=== PATIENT | male | born 1975 | race Caucasian/White ===

== ENCOUNTER 2017-06-13 15:22 | Emergency (ER) | payer MEDICAID ==
[~2017-06-13] VITALS: Ht 157.5 cm; Wt 80.1 kg
[~2017-06-13 15:22] MED LIST: ASPI-621 PO; ATOR10TA9 PO; CARV12.543 PO; CARV3.1212 PO; CARV6.252 PO; FURO-92 PO; FURO40TA6 PO; LANS30CA PO; LISI2.5T PO; METF500T27 PO; POTA20TA89 PO; POTA99TA2 PO; SPIR25TA PO
[2017-06-13] MEDS ORDERED: ONDANSETRON 2MG/ML, 2ML IM ONE (15:30)
[2017-06-13] MEDS ORDERED: SODIUM CHLORIDE FLUSH 10ML SYR IVF ONE (15:30)
[2017-06-13] MEDS ORDERED: SODIUM CHLORIDE 0.9% 1,000ML IVBOLUS ONE (15:30)
[2017-06-13 15:58] LABS: PH, VENOUS 7.409 pH (7.320-7.420)
[2017-06-13 16:01] LABS: HEMATOCRIT 44.2 % (39.2-51.8); HEMOGLOBIN 15.4 g/dL (13.7-18.0); WHITE BLOOD COUNT 5.9 x10^3/uL (3.4-10)
[2017-06-13 16:11] LABS: BLOOD UREA NITROGEN 12 mg/dL (7-18)
[2017-06-13 16:17] LABS: ASPARTATE AMINO TRANSFERASE 22 U/L (15-37)
[2017-06-13 18:00] VITALS: BP 106/78
== END 2017-06-13 18:03 | disposition home or self-care (01) ==
LOC: ED 17:28
DX: E11.65 Type 2 diabetes mellitus with hyperglycemia (principal); I10 Essential (primary) hypertension; E78.5 Hyperlipidemia, unspecified; Z79.84 Long term (current) use of oral hypoglycemic drugs
CPT/HCPCS: 36415; 71020; 80053; 82010; 82803; 82962; 85025; 96360; 99285; J7030

== ENCOUNTER 2017-10-23 15:34 | Emergency (ER) | payer SELFPAY ==
[~2017-10-23] VITALS: Ht 154.9 cm; Wt 78.0 kg
[~2017-10-23 15:34] MED LIST changes: +INSU100I13 IM
[2017-10-23 16:17] LABS: BASOPHILS # (AUTO) 0.04 x10^3/uL (0-0.1); BASOPHILS % (AUTO) 1 % (0-1); EOSINOPHILS # (AUTO) 0.12 x10^3/uL (0-0.4); EOSINOPHILS % (AUTO) 2 % (1-7); LYMPHOCYTES % (AUTO) 24 % (22-44); MD NO; MEAN CORPUSCULAR HEMOGLOBIN 31.3 pg (27.5-34.5); MEAN CORPUSCULAR HGB CONC 33.3 g/dL (33.2-36.2); MEAN PLATELET VOLUME 8.7 fL (7.4-10.4); MONOCYTES # (AUTO) 0.77 x10^3/uL (0.2-0.8); MONOCYTES % (AUTO) 11 % (2-9); NEUTROPHILS % (AUTO) 64 % (42-75); PLATELET COUNT 182 x10^3/uL (130-400); RED CELL DISTRIBUTION WIDTH 12.5 % (9.4-14.8)
[2017-10-23 16:22] LABS: ALANINE AMINOTRANSFERASE 373 U/L (12-78); ALBUMIN 3.5 g/dL (3.4-5.0); ANION GAP 10 mmol/L (5-15); CALCIUM 8.2 mg/dL (8.5-10.1); CHLORIDE 103 mmol/L (98-107); CREATININE 0.82 mg/dL (0.7-1.3)
[2017-10-23 16:27] LABS: ALKALINE PHOSPHATASE 170 U/L (45-117); BILIRUBIN,TOTAL 0.8 mg/dL (0.2-1.0); TOTAL PROTEIN 6.6 g/dL (6.4-8.2); TROPONIN I < 0.015 ng/mL (0.000-0.045)
[2017-10-23] MEDS ORDERED: POTASSIUM PO (17:08)
[2017-10-23] MEDS ORDERED: CARV6.252 PO (17:08)
[2017-10-23] MEDS ORDERED: FURO20TA3 PO (17:08)
[2017-10-23 19:04] VITALS: BP 108/75
== END 2017-10-23 19:07 | disposition home or self-care (01) ==
LOC: ED 16:25
DX: I50.22 Chronic systolic (congestive) heart failure (principal); R10.13 Epigastric pain; E11.9 Type 2 diabetes mellitus without complications; E78.5 Hyperlipidemia, unspecified; F41.9 Anxiety disorder, unspecified; K21.9 Gastro-esophageal reflux disease without esophagitis; Z79.84 Long term (current) use of oral hypoglycemic drugs; Z95.0 Presence of cardiac pacemaker; Z79.899 Other long term (current) drug therapy
CPT/HCPCS: 36415; 74022; 80053; 83690; 83880; 84484; 85025; 93005; 99285

== ENCOUNTER 2017-10-30 13:16 | Inpatient (IN) | payer MEDICAID, OTHER ==
[~2017-10-30] VITALS: Ht 154.9 cm; Wt 77.6 kg
[~2017-10-30 13:16] MED LIST changes: +FURO20TA3 PO; +POTASSIUM PO
[2017-10-30] MEDS ORDERED: SODIUM CHLORIDE FLUSH 10ML SYR IVF ONE (14:00)
[2017-10-30] MEDS ORDERED: FUROSEMIDE 40 MG/4 ML IVPush ONE (14:00)
[2017-10-30] MEDS ORDERED: FUROSEMIDE 40 MG/4 ML ONE (14:17)
[2017-10-30] MEDS ORDERED: ATOR10TA PO (14:45)
[2017-10-30 14:58] LABS: BASOPHILS # (AUTO) 0.03 x10^3/uL (0-0.1); BASOPHILS % (AUTO) 1 % (0-1); EOSINOPHILS # (AUTO) 0.11 x10^3/uL (0-0.4); EOSINOPHILS % (AUTO) 2 % (1-7); LYMPHOCYTES # (AUTO) 1.54 x10^3/uL (1-3.4); LYMPHOCYTES % (AUTO) 26 % (22-44); MD NO; MEAN CORPUSCULAR HEMOGLOBIN 30.9 pg (27.5-34.5); MEAN CORPUSCULAR HGB CONC 32.9 g/dL (33.2-36.2); MEAN CORPUSCULAR VOLUME 93.9 fL (81-97); MEAN PLATELET VOLUME 8.7 fL (7.4-10.4); MONOCYTES # (AUTO) 0.57 x10^3/uL (0.2-0.8); MONOCYTES % (AUTO) 9 % (2-9); NEUTROPHILS # (AUTO) 3.78 x10^3/uL (1.8-6.8); NEUTROPHILS % (AUTO) 63 % (42-75); PLATELET COUNT 210 x10^3/uL (130-400); RED BLOOD COUNT 4.61 x10^6/uL (4.38-5.82); RED CELL DISTRIBUTION WIDTH 13.2 % (9.4-14.8)
[2017-10-30 15:09] LABS: ALANINE AMINOTRANSFERASE 249 U/L (12-78); ALBUMIN 3.4 g/dL (3.4-5.0); ANION GAP 7 mmol/L (5-15); CALCIUM 8.2 mg/dL (8.5-10.1); CHLORIDE 105 mmol/L (98-107)
[2017-10-30 15:12] LABS: ALKALINE PHOSPHATASE 165 U/L (45-117); BILIRUBIN,TOTAL 0.4 mg/dL (0.2-1.0); TOTAL PROTEIN 6.4 g/dL (6.4-8.2); TROPONIN I 0.017 ng/mL (0.000-0.045)
[2017-10-30] MEDS ORDERED: LABETALOL 5MG/ML, 20ML IVPush PRN (17:00)
[2017-10-30] MEDS ORDERED: ONDANSETRON ODT 4 MG PO PRN (17:00)
[2017-10-30] MEDS ORDERED: GUAIFENESIN/DM 200-20MG, 10ML UDC PO PRN (17:00)
[2017-10-30] MEDS ORDERED: POLYETHYLENE GLYCOL 17 GM PACKET PO PRN (17:00)
[2017-10-30] MEDS ORDERED: ONDANSETRON 2MG/ML, 2ML IVPush PRN (17:00)
[2017-10-30 17:16] LABS: FREE T4 (FREE THYROXINE) 0.84 ng/dL (0.76-1.46)
[2017-10-30 18:16] VITALS: BP 85/64
[2017-10-30] MEDS: FUROSEMIDE 40 MG/4 ML IV SCH (19:53)
[2017-10-30 20:21] VITALS: BP 93/69
[2017-10-30] MEDS ORDERED: CARVEDILOL 6.25 MG TABLET PO SCH (21:00)
[2017-10-30] MEDS ORDERED: ATORVASTATIN 10 MG TABLET PO SCH (21:00)
[2017-10-30] MEDS: INSULIN LISPRO 100 UNITS/ML, PEN SQ-INSULIN SCH (21:41)
[2017-10-30] MEDS: INSULIN GLARGINE 100 UNITS/ML, PEN SQ-INSULIN SCH (21:44)
[2017-10-30] MEDS: ENOXAPARIN 40 MG/0.4 ML SQ SCH (21:45)
[2017-10-31] MEDS ORDERED: ASPIRIN 81 MG TABLET EC PO ONE (00:30)
[2017-10-31 01:53] VITALS: BP 88/61
[2017-10-31 05:47] LABS: BASOPHILS # (AUTO) 0.04 x10^3/uL (0-0.1); BASOPHILS % (AUTO) 1 % (0-1); EOSINOPHILS # (AUTO) 0.16 x10^3/uL (0-0.4); EOSINOPHILS % (AUTO) 3 % (1-7); LYMPHOCYTES # (AUTO) 1.81 x10^3/uL (1-3.4); LYMPHOCYTES % (AUTO) 33 % (22-44); MD NO; MEAN CORPUSCULAR HEMOGLOBIN 31.3 pg (27.5-34.5); MEAN CORPUSCULAR HGB CONC 33.2 g/dL (33.2-36.2); MEAN CORPUSCULAR VOLUME 94.3 fL (81-97); MEAN PLATELET VOLUME 8.6 fL (7.4-10.4); MONOCYTES # (AUTO) 0.45 x10^3/uL (0.2-0.8); MONOCYTES % (AUTO) 8 % (2-9); NEUTROPHILS # (AUTO) 2.96 x10^3/uL (1.8-6.8); NEUTROPHILS % (AUTO) 55 % (42-75); PLATELET COUNT 186 x10^3/uL (130-400); RED BLOOD COUNT 4.41 x10^6/uL (4.38-5.82); RED CELL DISTRIBUTION WIDTH 12.9 % (9.4-14.8)
[2017-10-31 05:52] LABS: ALBUMIN 3.2 g/dL (3.4-5.0); ANION GAP 9 mmol/L (5-15); CALCIUM 8.3 mg/dL (8.5-10.1); CHLORIDE 104 mmol/L (98-107)
[2017-10-31 06:07] LABS: ALANINE AMINOTRANSFERASE 214 U/L (12-78); ALKALINE PHOSPHATASE 145 U/L (45-117); BILIRUBIN,TOTAL 0.4 mg/dL (0.2-1.0); CHOL/HDL RATIO 6.3; CHOLESTEROL, TOTAL 145 mg/dL (140-239); CREATININE 0.83 mg/dL (0.7-1.3); HDL CHOL % 16 % (26-37); HDL CHOLESTEROL (DIRECT) 23 mg/dL (40-60); LDL CHOLESTEROL,CALCULATED 102 mg/dL (54-169); LDL/HDL RATIO 4.4 (0.5-3.0); TOTAL PROTEIN 6.1 g/dL (6.4-8.2); TRIGLYCERIDES 99 mg/dL (50-200); VLDL CHOLESTEROL 20 mg/dL (0-25)
[2017-10-31 07:12] VITALS: BP 96/69
[2017-10-31] MEDS: INSULIN LISPRO 100 UNITS/ML, PEN SQ-INSULIN SCH ×4 (07:50→20:54)
[2017-10-31 08:58] VITALS: BP 85/59
[2017-10-31] MEDS ORDERED: CARVEDILOL 6.25 MG TABLET PO SCH (09:00)
[2017-10-31] MEDS: FUROSEMIDE 40 MG/4 ML IV SCH ×2 (09:00→20:53)
[2017-10-31] MEDS ORDERED: LISINOPRIL 5 MG TABLET PO SCH (09:00)
[2017-10-31] MEDS ORDERED: SPIRONOLACTONE 25 MG TABLET PO SCH (09:00)
[2017-10-31] MEDS: ASPIRIN 81 MG TABLET EC PO SCH (09:00)
[2017-10-31] MEDS: SENNA/DOCUSATE TABLET PO SCH (09:01)
[2017-10-31 10:15] VITALS: BP 122/82
[2017-10-31] MEDS: POTASSIUM CHLORIDE 20 MEQ TAB.ER.PRT PO SCH ×2 (10:15→17:30)
[2017-10-31] MEDS: LISINOPRIL 5 MG TABLET PO SCH (10:15)
[2017-10-31 13:22] VITALS: BP 98/76
[2017-10-31 19:46] VITALS: BP 106/75
[2017-10-31] MEDS: ENOXAPARIN 40 MG/0.4 ML SQ SCH (20:54)
[2017-10-31] MEDS: INSULIN GLARGINE 100 UNITS/ML, PEN SQ-INSULIN SCH (20:54)
[2017-10-31] MEDS: CARVEDILOL 3.125 MG TABLET PO SCH (20:55)
[2017-10-31] MEDS: ATORVASTATIN 10 MG TABLET PO SCH (20:55)
[2017-11-01 02:34] VITALS: BP 89/70
[2017-11-01 05:39] LABS: BASOPHILS # (AUTO) 0.04 x10^3/uL (0-0.1); BASOPHILS % (AUTO) 1 % (0-1); EOSINOPHILS % (AUTO) 4 % (1-7); LYMPHOCYTES # (AUTO) 1.85 x10^3/uL (1-3.4); LYMPHOCYTES % (AUTO) 34 % (22-44); MD NO; MEAN CORPUSCULAR HEMOGLOBIN 31.2 pg (27.5-34.5); MEAN CORPUSCULAR HGB CONC 33.1 g/dL (33.2-36.2); MEAN CORPUSCULAR VOLUME 94.3 fL (81-97); MEAN PLATELET VOLUME 8.3 fL (7.4-10.4); MONOCYTES # (AUTO) 0.53 x10^3/uL (0.2-0.8); MONOCYTES % (AUTO) 10 % (2-9); NEUTROPHILS # (AUTO) 2.81 x10^3/uL (1.8-6.8); NEUTROPHILS % (AUTO) 52 % (42-75); PLATELET COUNT 190 x10^3/uL (130-400); RED BLOOD COUNT 4.37 x10^6/uL (4.38-5.82)
[2017-11-01 05:48] LABS: CHLORIDE 105 mmol/L (98-107)
[2017-11-01 05:57] LABS: ALANINE AMINOTRANSFERASE 178 U/L (12-78); ALBUMIN 3.2 g/dL (3.4-5.0); ALKALINE PHOSPHATASE 129 U/L (45-117); ANION GAP 7 mmol/L (5-15); BILIRUBIN,TOTAL 0.4 mg/dL (0.2-1.0); CALCIUM 8.6 mg/dL (8.5-10.1); CREATININE 0.86 mg/dL (0.7-1.3); TOTAL PROTEIN 6.3 g/dL (6.4-8.2)
[2017-11-01 06:33] VITALS: BP 95/70
[2017-11-01] MEDS: INSULIN LISPRO 100 UNITS/ML, PEN SQ-INSULIN SCH ×4 (07:00→20:35)
[2017-11-01] MEDS: ASPIRIN 81 MG TABLET EC PO SCH (08:24)
[2017-11-01] MEDS: CARVEDILOL 3.125 MG TABLET PO SCH ×2 (08:25→20:32)
[2017-11-01] MEDS: POTASSIUM CHLORIDE 20 MEQ TAB.ER.PRT PO SCH ×2 (08:26→20:31)
[2017-11-01] MEDS: LISINOPRIL 5 MG TABLET PO SCH (08:26)
[2017-11-01] MEDS: SPIRONOLACTONE 25 MG TABLET PO SCH (08:26)
[2017-11-01] MEDS: FUROSEMIDE 40 MG/4 ML IV SCH ×2 (08:26→20:32)
[2017-11-01] MEDS: SENNA/DOCUSATE TABLET PO SCH (08:27)
[2017-11-01 11:17] VITALS: BP 80/60
[2017-11-01 14:17] VITALS: BP 89/63
[2017-11-01 19:37] VITALS: BP 90/67
[2017-11-01 20:29] VITALS: BP 92/67
[2017-11-01] MEDS: ATORVASTATIN 10 MG TABLET PO SCH (20:31)
[2017-11-01] MEDS: INSULIN GLARGINE 100 UNITS/ML, PEN SQ-INSULIN SCH (20:33)
[2017-11-01] MEDS: ENOXAPARIN 40 MG/0.4 ML SQ SCH (20:33)
[2017-11-02 00:45] VITALS: BP 89/59
[2017-11-02 05:19] LABS: ALBUMIN 3.2 g/dL (3.4-5.0); ANION GAP 10 mmol/L (5-15); CALCIUM 7.9 mg/dL (8.5-10.1); CHLORIDE 106 mmol/L (98-107)
[2017-11-02 05:24] LABS: ALANINE AMINOTRANSFERASE 149 U/L (12-78); ALKALINE PHOSPHATASE 140 U/L (45-117); BILIRUBIN,TOTAL 0.7 mg/dL (0.2-1.0); CREATININE 0.88 mg/dL (0.7-1.3); TOTAL PROTEIN 6.3 g/dL (6.4-8.2)
[2017-11-02] MEDS: INSULIN LISPRO 100 UNITS/ML, PEN SQ-INSULIN SCH ×4 (07:00→20:25)
[2017-11-02 07:34] VITALS: BP 101/72
[2017-11-02] MEDS: FUROSEMIDE 40 MG/4 ML IV SCH (08:51)
[2017-11-02] MEDS: LISINOPRIL 5 MG TABLET PO SCH (08:51)
[2017-11-02] MEDS: CARVEDILOL 3.125 MG TABLET PO SCH ×2 (08:52→20:48)
[2017-11-02] MEDS: ASPIRIN 81 MG TABLET EC PO SCH (08:52)
[2017-11-02] MEDS: POTASSIUM CHLORIDE 20 MEQ TAB.ER.PRT PO SCH ×2 (08:52→20:48)
[2017-11-02] MEDS: SENNA/DOCUSATE TABLET PO SCH (08:56)
[2017-11-02] MEDS: SPIRONOLACTONE 25 MG TABLET PO SCH (09:04)
[2017-11-02 13:09] VITALS: BP 93/65
[2017-11-02 20:44] VITALS: BP 93/64
[2017-11-02] MEDS: ENOXAPARIN 40 MG/0.4 ML SQ SCH (20:48)
[2017-11-02] MEDS: ATORVASTATIN 10 MG TABLET PO SCH (20:48)
[2017-11-02] MEDS: INSULIN GLARGINE 100 UNITS/ML, PEN SQ-INSULIN SCH (20:49)
[2017-11-03 04:30] VITALS: BP 99/70
[2017-11-03 05:52] LABS: BASOPHILS # (AUTO) 0.05 x10^3/uL (0-0.1); BASOPHILS % (AUTO) 1 % (0-1); EOSINOPHILS # (AUTO) 0.24 x10^3/uL (0-0.4); EOSINOPHILS % (AUTO) 4 % (1-7); LYMPHOCYTES # (AUTO) 2.07 x10^3/uL (1-3.4); LYMPHOCYTES % (AUTO) 33 % (22-44); MD NO; MEAN CORPUSCULAR HEMOGLOBIN 31.3 pg (27.5-34.5); MEAN CORPUSCULAR HGB CONC 33.4 g/dL (33.2-36.2); MEAN CORPUSCULAR VOLUME 93.8 fL (81-97); MEAN PLATELET VOLUME 8.5 fL (7.4-10.4); MONOCYTES # (AUTO) 0.53 x10^3/uL (0.2-0.8); MONOCYTES % (AUTO) 9 % (2-9); NEUTROPHILS # (AUTO) 3.33 x10^3/uL (1.8-6.8); NEUTROPHILS % (AUTO) 54 % (42-75); PLATELET COUNT 180 x10^3/uL (130-400); RED BLOOD COUNT 4.31 x10^6/uL (4.38-5.82); RED CELL DISTRIBUTION WIDTH 12.8 % (9.4-14.8)
[2017-11-03 06:06] LABS: CHLORIDE 107 mmol/L (98-107)
[2017-11-03 06:22] LABS: ALANINE AMINOTRANSFERASE 121 U/L (12-78); ALBUMIN 3.3 g/dL (3.4-5.0); ALKALINE PHOSPHATASE 130 U/L (45-117); ANION GAP 9 mmol/L (5-15); BILIRUBIN,TOTAL 0.7 mg/dL (0.2-1.0); CALCIUM 8.1 mg/dL (8.5-10.1); CREATININE 0.85 mg/dL (0.7-1.3); TOTAL PROTEIN 6.2 g/dL (6.4-8.2)
[2017-11-03] MEDS: INSULIN LISPRO 100 UNITS/ML, PEN SQ-INSULIN SCH ×4 (07:00→22:24)
[2017-11-03 07:27] VITALS: BP 92/69
[2017-11-03] MEDS ORDERED: FUROSEMIDE 40 MG TABLET PO SCH (09:00)
[2017-11-03] MEDS: SENNA/DOCUSATE TABLET PO SCH (09:00)
[2017-11-03] MEDS: LISINOPRIL 5 MG TABLET PO SCH (09:42)
[2017-11-03] MEDS: SPIRONOLACTONE 25 MG TABLET PO SCH (09:43)
[2017-11-03] MEDS: POTASSIUM CHLORIDE 20 MEQ TAB.ER.PRT PO SCH ×2 (09:44→18:34)
[2017-11-03] MEDS: ASPIRIN 81 MG TABLET EC PO SCH (09:45)
[2017-11-03] MEDS: CARVEDILOL 3.125 MG TABLET PO SCH ×2 (09:45→22:23)
[2017-11-03 13:58] VITALS: BP 94/64
[2017-11-03] MEDS: FUROSEMIDE 40 MG TABLET PO SCH ×2 (18:34→20:20)
[2017-11-03 18:46] VITALS: BP 96/67
[2017-11-03] MEDS: ENOXAPARIN 40 MG/0.4 ML SQ SCH (22:22)
[2017-11-03] MEDS: ATORVASTATIN 10 MG TABLET PO SCH (22:23)
[2017-11-03] MEDS: INSULIN GLARGINE 100 UNITS/ML, PEN SQ-INSULIN SCH (22:25)
[2017-11-04 02:12] VITALS: BP 94/65
[2017-11-04 05:19] LABS: BASOPHILS # (AUTO) 0.04 x10^3/uL (0-0.1); BASOPHILS % (AUTO) 1 % (0-1); EOSINOPHILS # (AUTO) 0.19 x10^3/uL (0-0.4); EOSINOPHILS % (AUTO) 3 % (1-7); LYMPHOCYTES % (AUTO) 36 % (22-44); MD NO; MEAN CORPUSCULAR HEMOGLOBIN 31.3 pg (27.5-34.5); MEAN CORPUSCULAR HGB CONC 33.5 g/dL (33.2-36.2); MEAN CORPUSCULAR VOLUME 93.5 fL (81-97); MEAN PLATELET VOLUME 8.5 fL (7.4-10.4); MONOCYTES # (AUTO) 0.49 x10^3/uL (0.2-0.8); MONOCYTES % (AUTO) 8 % (2-9); NEUTROPHILS # (AUTO) 3.15 x10^3/uL (1.8-6.8); NEUTROPHILS % (AUTO) 52 % (42-75); PLATELET COUNT 181 x10^3/uL (130-400); RED BLOOD COUNT 4.43 x10^6/uL (4.38-5.82)
[2017-11-04 05:20] LABS: ALBUMIN 3.2 g/dL (3.4-5.0); ANION GAP 8 mmol/L (5-15); CALCIUM 8.3 mg/dL (8.5-10.1); CHLORIDE 106 mmol/L (98-107)
[2017-11-04 05:24] LABS: ALANINE AMINOTRANSFERASE 110 U/L (12-78); ALKALINE PHOSPHATASE 148 U/L (45-117); BILIRUBIN,TOTAL 0.3 mg/dL (0.2-1.0); CREATININE 0.74 mg/dL (0.7-1.3); TOTAL PROTEIN 6.4 g/dL (6.4-8.2)
[2017-11-04] MEDS: INSULIN LISPRO 100 UNITS/ML, PEN SQ-INSULIN SCH ×3 (07:00→16:00)
[2017-11-04 07:12] VITALS: BP 108/71
[2017-11-04] MEDS: SENNA/DOCUSATE TABLET PO SCH (08:39)
[2017-11-04] MEDS: POTASSIUM CHLORIDE 20 MEQ TAB.ER.PRT PO SCH (08:53)
[2017-11-04] MEDS: ASPIRIN 81 MG TABLET EC PO SCH (08:53)
[2017-11-04] MEDS: CARVEDILOL 3.125 MG TABLET PO SCH (08:53)
[2017-11-04] MEDS: SPIRONOLACTONE 25 MG TABLET PO SCH (08:53)
[2017-11-04] MEDS: FUROSEMIDE 40 MG TABLET PO SCH (08:53)
[2017-11-04] MEDS: LISINOPRIL 5 MG TABLET PO SCH (08:54)
[2017-11-04 13:59] VITALS: BP 96/72
[2017-11-04] MEDS ORDERED: SPIR25TA PO (15:54)
[2017-11-04] MEDS ORDERED: FURO40TA6 PO (15:54)
[2017-11-04] MEDS ORDERED: CARV3.1212 PO (15:54)
[2017-11-04] MEDS ORDERED: POTA20TA6 PO (15:54)
== END 2017-11-04 17:24 | disposition home or self-care (01) | DRG 291 ==
LOC: ED 14:16 → EDIP 16:31 → 5SO 18:13
PROVIDERS: ADMIT Internal Medicine; ATTEND Internal Medicine
DX: I11.0 Hypertensive heart disease with heart failure (principal); J96.01 Acute respiratory failure with hypoxia; I47.2 Ventricular tachycardia; E11.65 Type 2 diabetes mellitus with hyperglycemia; I50.43 Acute on chronic combined systolic (congestive) and diastolic (congestive) heart failure; I42.0 Dilated cardiomyopathy; I27.29 Other secondary pulmonary hypertension; E78.5 Hyperlipidemia, unspecified; F10.10 Alcohol abuse, uncomplicated; K21.9 Gastro-esophageal reflux disease without esophagitis; Z79.4 Long term (current) use of insulin; Z79.899 Other long term (current) drug therapy; Z83.3 Family history of diabetes mellitus; Z87.891 Personal history of nicotine dependence; Z91.19 Patient's noncompliance with other medical treatment and regimen; Z95.810 Presence of automatic (implantable) cardiac defibrillator
CPT/HCPCS: 36415; 71045; 71046; 80053; 80061; 82962; 83690; 83735; 83880; 84100; 84439; 84484; 85025; 93005; J1650; J1940; J1815

== ENCOUNTER → 2018-09-10 | Outpatient (CLI) | payer MEDICAID ==
[~2018-09-10] MED LIST changes: -ASPI-621 PO; +ASPI81TA45 PO; +ATOR10TA PO; +POTA20TA6 PO
== END | disposition home or self-care (01) ==
LOC: CFH 12:10
PROVIDERS: ATTEND Physician Assistant Medical
DX: I08.1 Rheumatic disorders of both mitral and tricuspid valves (principal); R60.0 Localized edema; I10 Essential (primary) hypertension; E78.5 Hyperlipidemia, unspecified; Z87.891 Personal history of nicotine dependence; Z72.89 Other problems related to lifestyle
CPT/HCPCS: 0439T; 93306

== ENCOUNTER 2018-09-14 17:59 | Inpatient (IN) | payer MEDICAID ==
[~2018-09-14] VITALS: Ht 152.4 cm; Wt 74.8 kg
--- NOTE | 2018-09-14 18:37 | NUR ---
Pt stated that he has swelling of his ABD, genitals, and lower legs. Pt reports SOB and that he takes water pills. Pt is alert, oriented, with NAD. Pt is connected to the monitor. Call light within reach.
--- NOTE | 2018-09-14 18:58 | NUR ---
REPORT GIVEN TO REANNA MARSH
[2018-09-14 18:59] LABS: BASOPHILS # (AUTO) 0.02 x10^3/uL (0-0.1); BASOPHILS % (AUTO) 0 % (0-1); EOSINOPHILS # (AUTO) 0.07 x10^3/uL (0-0.4); EOSINOPHILS % (AUTO) 1 % (1-7); LYMPHOCYTES # (AUTO) 1.03 x10^3/uL (1-3.4); LYMPHOCYTES % (AUTO) 22 % (22-44); MD NO; MEAN CORPUSCULAR HEMOGLOBIN 31.9 pg (27.5-34.5); MEAN CORPUSCULAR HGB CONC 33.7 g/dL (33.2-36.2); MEAN CORPUSCULAR VOLUME 94.5 fL (81-97); MEAN PLATELET VOLUME 9.7 fL (7.4-10.4); MONOCYTES % (AUTO) 11 % (2-9); NEUTROPHILS # (AUTO) 3.03 x10^3/uL (1.8-6.8); NEUTROPHILS % (AUTO) 65 % (42-75); PLATELET COUNT 157 x10^3/uL (130-400); RED BLOOD COUNT 4.64 x10^6/uL (4.38-5.82); RED CELL DISTRIBUTION WIDTH 12.8 % (9.4-14.8)
[2018-09-14 19:04] LABS: INTERNATIONAL NORMALIZED RATIO 1.24 (0.93-1.1)
[2018-09-14 19:06] LABS: MICROSCOPIC NOT IND
[2018-09-14] MEDS ORDERED: SACU1TAB PO (19:06)
[2018-09-14 19:07] LABS: ALANINE AMINOTRANSFERASE 52 U/L (12-78); ALBUMIN 3.6 g/dL (3.4-5.0); ANION GAP 10 mmol/L (5-15); CALCIUM 8.9 mg/dL (8.5-10.1); CHLORIDE 94 mmol/L (98-107); CREATININE 1.17 mg/dL (0.7-1.3)
[2018-09-14 19:11] LABS: CULTURE INDICATED? NO
[2018-09-14 19:11] LABS: ALKALINE PHOSPHATASE 244 U/L (45-117); BILIRUBIN,TOTAL 0.7 mg/dL (0.2-1.0); TOTAL PROTEIN 6.9 g/dL (6.4-8.2); TROPONIN I < 0.015 ng/mL (0.000-0.045)
[2018-09-14] MEDS ORDERED: INSULIN REGULAR 100 UNITS/ML, 3ML VIAL IVPush ONE (20:00)
[2018-09-14] MEDS ORDERED: FUROSEMIDE 40 MG/4 ML IV ONE (20:00)
[2018-09-14] MEDS ORDERED: FUROSEMIDE 20 MG/2 ML ONE (20:09)
[2018-09-14] MEDS ORDERED: INSULIN LISPRO 100 UNITS/ML, PEN ONE (20:10)
--- NOTE | 2018-09-14 20:31 | NUR ---
IV STARTED AND PT MEDICATED PER EMAR FOR BLOOD SUGAR 683. PT RESTING COMFORTABLY ON GURNEY WITH FAMILY AT BEDSIDE. VVS AND WILL CONT TO MONITOR.
[2018-09-14] MEDS ORDERED: TEMAZEPAM 15 MG CAPSULE PO PRN (22:00)
[2018-09-14] MEDS ORDERED: GABAPENTIN 300 MG CAPSULE PO PRN (22:00)
[2018-09-14] MEDS ORDERED: LIDODERM 5% PATCH TD PRN (22:00)
[2018-09-14] MEDS ORDERED: DOCUSATE 100 MG CAPSULE PO PRN (22:00)
[2018-09-14] MEDS ORDERED: hydrALAzine 20 MG/ML, 1ML IVPush PRN (22:00)
[2018-09-14] MEDS ORDERED: ACETAMINOPHEN 325 MG TABLET PO PRN (22:00)
[2018-09-14] MEDS ORDERED: ONDANSETRON 2MG/ML, 2ML IVPush PRN (22:00)
[2018-09-14 22:47] LABS: HEMOGLOBIN A1C 13.9 % (4.2-6.3)
[2018-09-14] MEDS: CARVEDILOL 3.125 MG TABLET PO SCH (23:00)
[2018-09-14] MEDS: ENOXAPARIN 40 MG/0.4 ML SQ SCH (23:01)
[2018-09-14] MEDS: POTASSIUM CHLORIDE 20 MEQ TAB.ER.PRT PO SCH (23:02)
[2018-09-14] MEDS: SACUBITRIL/VALSARTAN 24MG-26MG TAB PO SCH (23:02)
[2018-09-14] MEDS: ATORVASTATIN 10 MG TABLET PO SCH (23:02)
[2018-09-14 23:33] VITALS: BP 94/67
[2018-09-15] VITALS (7 sets, daily range): BP systolic 89–104; BP diastolic 51–71
[2018-09-15] MEDS: INSULIN REGULAR 100 UNITS/ML, 3ML VIAL SQ-INSULIN SCH ×5 (01:00→21:55)
[2018-09-15 05:23] LABS: BASOPHILS # (AUTO) 0.05 x10^3/uL (0-0.1); BASOPHILS % (AUTO) 1 % (0-1); EOSINOPHILS # (AUTO) 0.13 x10^3/uL (0-0.4); EOSINOPHILS % (AUTO) 2 % (1-7); LYMPHOCYTES % (AUTO) 41 % (22-44); MD NO; MEAN CORPUSCULAR HEMOGLOBIN 30.8 pg (27.5-34.5); MEAN CORPUSCULAR HGB CONC 32.6 g/dL (33.2-36.2); MEAN CORPUSCULAR VOLUME 94.6 fL (81-97); MEAN PLATELET VOLUME 9.1 fL (7.4-10.4); MONOCYTES # (AUTO) 0.57 x10^3/uL (0.2-0.8); MONOCYTES % (AUTO) 11 % (2-9); NEUTROPHILS # (AUTO) 2.41 x10^3/uL (1.8-6.8); NEUTROPHILS % (AUTO) 45 % (42-75); PLATELET COUNT 180 x10^3/uL (130-400); RED CELL DISTRIBUTION WIDTH 12.9 % (9.4-14.8)
[2018-09-15 05:35] LABS: ANION GAP 9 mmol/L (5-15); CALCIUM 8.7 mg/dL (8.5-10.1); CHLORIDE 104 mmol/L (98-107); CREATININE 1.07 mg/dL (0.7-1.3)
[2018-09-15] MEDS: POTASSIUM CHLORIDE 20 MEQ TAB.ER.PRT PO SCH ×2 (07:54→17:05)
[2018-09-15] MEDS: FUROSEMIDE 40 MG/4 ML IV SCH ×2 (07:54→17:06)
[2018-09-15] MEDS: ASPIRIN 81 MG TABLET EC PO SCH (07:55)
[2018-09-15] MEDS: SACUBITRIL/VALSARTAN 24MG-26MG TAB PO SCH ×2 (07:55→21:42)
[2018-09-15] MEDS: CARVEDILOL 3.125 MG TABLET PO SCH ×2 (09:00→21:00)
[2018-09-15] MEDS: INSULIN GLARGINE 100 UNITS/ML, PEN SQ-INSULIN SCH (12:50)
[2018-09-15] MEDS: metFORMIN 500 MG TABLET PO SCH (21:43)
[2018-09-15] MEDS: ATORVASTATIN 10 MG TABLET PO SCH (21:43)
[2018-09-15] MEDS: ENOXAPARIN 40 MG/0.4 ML SQ SCH (22:01)
[2018-09-16 00:18] VITALS: BP 102/71
[2018-09-16 05:17] LABS: ANION GAP 6 mmol/L (5-15); CALCIUM 8.5 mg/dL (8.5-10.1); CHLORIDE 104 mmol/L (98-107)
[2018-09-16 05:22] LABS: ALANINE AMINOTRANSFERASE 39 U/L (12-78); ALKALINE PHOSPHATASE 151 U/L (45-117); BILIRUBIN,TOTAL 0.7 mg/dL (0.2-1.0); CREATININE 0.87 mg/dL (0.7-1.3); TOTAL PROTEIN 6.2 g/dL (6.4-8.2)
[2018-09-16 08:10] VITALS: BP 92/69
[2018-09-16] MEDS: CARVEDILOL 3.125 MG TABLET PO SCH (08:33)
[2018-09-16] MEDS: POTASSIUM CHLORIDE 20 MEQ TAB.ER.PRT PO SCH (08:36)
[2018-09-16] MEDS: ASPIRIN 81 MG TABLET EC PO SCH (08:36)
[2018-09-16] MEDS: metFORMIN 500 MG TABLET PO SCH (08:36)
[2018-09-16] MEDS: SACUBITRIL/VALSARTAN 24MG-26MG TAB PO SCH (08:36)
[2018-09-16] MEDS: INSULIN GLARGINE 100 UNITS/ML, PEN SQ-INSULIN SCH (08:37)
[2018-09-16] MEDS: INSULIN REGULAR 100 UNITS/ML, 3ML VIAL SQ-INSULIN SCH (08:37)
[2018-09-16] MEDS ORDERED: FUROSEMIDE 40 MG TABLET PO SCH (11:00)
[2018-09-16] MEDS ORDERED: FUROSEMIDE 20 MG/2 ML IV SCH (17:00)
[2018-09-17] MEDS ORDERED: ROSU5TAB PO (15:18)
== END 2018-09-16 10:47 | disposition home or self-care (01) | DRG 637 ==
LOC: ED 18:55 → EDIP 21:10 → 5SO 22:44 → DCLOUNGE 09-16 10:36
PROVIDERS: ADMIT Internal Medicine; ATTEND Internal Medicine
DX: E11.65 Type 2 diabetes mellitus with hyperglycemia (principal); I50.43 Acute on chronic combined systolic (congestive) and diastolic (congestive) heart failure; E87.1 Hypo-osmolality and hyponatremia; I42.9 Cardiomyopathy, unspecified; I11.0 Hypertensive heart disease with heart failure; E11.69 Type 2 diabetes mellitus with other specified complication; E78.5 Hyperlipidemia, unspecified; F41.1 Generalized anxiety disorder; I27.20 Pulmonary hypertension, unspecified; K21.9 Gastro-esophageal reflux disease without esophagitis; Z83.3 Family history of diabetes mellitus; Z95.810 Presence of automatic (implantable) cardiac defibrillator; F10.20 Alcohol dependence, uncomplicated; Y90.9 Presence of alcohol in blood, level not specified; E66.9 Obesity, unspecified; Z68.32 Body mass index [BMI] 32.0-32.9, adult
CPT/HCPCS: 36415; 71045; 80048; 80053; 81003; 82962; 83036; 83880; 84484; 85025; 85610; 93005; 96374; 96375; 99285; G0378; J1650; J1815; J1940

== ENCOUNTER 2018-09-17 14:43 | Emergency (ER) | payer MEDICAID ==
[~2018-09-17] VITALS: Ht 152.4 cm; Wt 72.0 kg
[~2018-09-17 14:43] MED LIST changes: +SACU1TAB PO
--- NOTE | 2018-09-17 14:54 | NUR ---
PT ARRIVES FROM [facility] TODAY AFTER HAVING SOME BREAKFAST AND STARTED HAVING SOME PALPATATIONS AND THEN SOME ANXIETY. PT THEN DEVELOPED SOME SOB WITH CHEST PAIN ACROSS THE CHEST THAT RADIATES TO HIS BACK. PT REPROTS PAIN 01/02. PT DENIES ANY TRUAMA. PTS VSS ON ARRIVAL. PT CONNECTED TO ALL MONITORS AND CALL LIGHT IN REACH. AWAITING FURTHER ORDERS.
--- NOTE | 2018-09-17 15:16 | NUR ---
ERP TO BEDSIDE AT THIS TIME.
[2018-09-17] MEDS ORDERED: ROSU5TAB PO (15:18)
[2018-09-17 15:36] LABS: BASOPHILS # (AUTO) 0.03 x10^3/uL (0-0.1); BASOPHILS % (AUTO) 1 % (0-1); EOSINOPHILS # (AUTO) 0.08 x10^3/uL (0-0.4); EOSINOPHILS % (AUTO) 1 % (1-7); LYMPHOCYTES # (AUTO) 1.46 x10^3/uL (1-3.4); LYMPHOCYTES % (AUTO) 26 % (22-44); MD NO; MEAN CORPUSCULAR HEMOGLOBIN 30.4 pg (27.5-34.5); MEAN CORPUSCULAR HGB CONC 32.2 g/dL (33.2-36.2); MEAN CORPUSCULAR VOLUME 94.4 fL (81-97); MEAN PLATELET VOLUME 9.3 fL (7.4-10.4); MONOCYTES # (AUTO) 0.37 x10^3/uL (0.2-0.8); MONOCYTES % (AUTO) 6 % (2-9); NEUTROPHILS # (AUTO) 3.78 x10^3/uL (1.8-6.8); NEUTROPHILS % (AUTO) 66 % (42-75); PLATELET COUNT 200 x10^3/uL (130-400); RED BLOOD COUNT 4.97 x10^6/uL (4.38-5.82); RED CELL DISTRIBUTION WIDTH 12.8 % (9.4-14.8)
[2018-09-17 15:44] LABS: INTERNATIONAL NORMALIZED RATIO 1.28 (0.93-1.1); PROTHROMBIN TIME 13.4 Seconds (9.6-11.5)
[2018-09-17 15:45] LABS: ALANINE AMINOTRANSFERASE 51 U/L (12-78); ALBUMIN 3.2 g/dL (3.4-5.0); ANION GAP 9 mmol/L (5-15); CALCIUM 8.6 mg/dL (8.5-10.1); CHLORIDE 102 mmol/L (98-107); CREATININE 0.96 mg/dL (0.7-1.3)
[2018-09-17 15:49] LABS: ALKALINE PHOSPHATASE 159 U/L (45-117); BILIRUBIN,TOTAL 0.7 mg/dL (0.2-1.0); TOTAL PROTEIN 6.7 g/dL (6.4-8.2); TROPONIN I < 0.015 ng/mL (0.000-0.045)
--- NOTE | 2018-09-17 16:02 | NUR ---
ALL RESULTS BACK AT THIS TIME. CHART UP FOR RECHECK.
--- NOTE | 2018-09-17 16:57 | NUR ---
AWAITING DC PAPERS.
[2018-09-17 17:21] VITALS: BP 134/87
--- NOTE | 2018-09-17 17:21 | NUR ---
Patient/Caregiver given discharge instructions and they have confirmed that they understand the instructions. Patient ambulatory with steady gait.
== END 2018-09-17 17:23 | disposition home or self-care (01) ==
LOC: ED 15:49
DX: I50.9 Heart failure, unspecified (principal); K21.9 Gastro-esophageal reflux disease without esophagitis; E78.5 Hyperlipidemia, unspecified; I10 Essential (primary) hypertension; F41.1 Generalized anxiety disorder; Z79.899 Other long term (current) drug therapy; Z95.0 Presence of cardiac pacemaker
CPT/HCPCS: 36415; 71045; 80053; 83880; 84484; 85025; 85610; 85730; 93005; 99284

== ENCOUNTER 2019-10-09 08:36 | Emergency (ER) | payer SELFPAY ==
[~2019-10-09] VITALS: Ht 165.1 cm; Wt 82.0 kg
[~2019-10-09 08:36] MED LIST changes: +AMOX1TAB64 PO; +RIVA15TA PO; +ROSU5TAB PO
--- NOTE | 2019-10-09 08:57 | NUR ---
AGENCY SALES MANAGEMENT ASSISTANT: PT TO ROOM FROM [facility]
--- NOTE | 2019-10-09 09:12 | NUR ---
PATIENT BROUGHT BACK FROM TRIAGE WITH CHIEF COMPLAINT OF BILAT LOWER BACK PAIN SINCE YESTERDAY. PATIENT STATES SOME PAINFUL URINATION. DENIES, N/V, CP, SOB, RECENT TRAUMA.
--- NOTE | 2019-10-09 09:14 | NUR ---
PATIENT ALSO REPORT "INFLAMATION TO RIGHT LEG"
[2019-10-09] MEDS ORDERED: MORPHINE SULFATE 4 MG/ML, 1ML IVPush PRN (10:00)
[2019-10-09] MEDS ORDERED: METHOCARBAMOL 750 MG TABLET PO ONE (10:00)
[2019-10-09] MEDS ORDERED: SODIUM CHLORIDE FLUSH 10ML SYR IVF ONE (10:00)
[2019-10-09] MEDS ORDERED: METHOCARBAMOL 750 MG TABLET ONE (10:11)
[2019-10-09] MEDS ORDERED: MORPHINE SULFATE 4 MG/ML, 1ML ONE (10:12)
[2019-10-09 10:21] LABS: BASOPHILS # (AUTO) 0.08 x10^3/uL (0-0.1); BASOPHILS % (AUTO) 1 % (0-1); EOSINOPHILS # (AUTO) 0.21 x10^3/uL (0-0.4); EOSINOPHILS % (AUTO) 3 % (1-7); LYMPHOCYTES # (AUTO) 1.18 x10^3/uL (1-3.4); LYMPHOCYTES % (AUTO) 17 % (22-44); MD NO; MEAN CORPUSCULAR HGB CONC 32.5 g/dL (33.2-36.2); MEAN CORPUSCULAR VOLUME 86.2 fL (81-97); MEAN PLATELET VOLUME 8.9 fL (7.4-10.4); MONOCYTES # (AUTO) 0.61 x10^3/uL (0.2-0.8); MONOCYTES % (AUTO) 9 % (2-9); NEUTROPHILS # (AUTO) 4.81 x10^3/uL (1.8-6.8); NEUTROPHILS % (AUTO) 70 % (42-75); PLATELET COUNT 174 x10^3/uL (130-400); RED BLOOD COUNT 4.91 x10^6/uL (4.38-5.82); RED CELL DISTRIBUTION WIDTH 17.1 % (9.4-14.8)
[2019-10-09 10:29] LABS: ALANINE AMINOTRANSFERASE 13 U/L (12-78); ALBUMIN 3.6 g/dL (3.4-5.0); ANION GAP 8 mmol/L (5-15); CALCIUM 8.3 mg/dL (8.5-10.1); CHLORIDE 102 mmol/L (98-107)
[2019-10-09 10:34] LABS: ALKALINE PHOSPHATASE 166 U/L (45-117); BILIRUBIN,TOTAL 0.7 mg/dL (0.2-1.0); TOTAL PROTEIN 7.3 g/dL (6.4-8.2)
[2019-10-09 10:41] LABS: MICROSCOPIC NOT IND
[2019-10-09 10:42] LABS: CULTURE INDICATED? NO
--- NOTE | 2019-10-09 10:49 | NUR ---
PT TO IMAGING
[2019-10-09 10:51] LABS: ACETONE, SERUM Negative (Negative)
--- NOTE | 2019-10-09 11:35 | NUR ---
PT RESTING IN BED, CALL LIGHT IN REACH.
[2019-10-09 11:36] VITALS: BP 97/67
--- NOTE | 2019-10-09 12:05 | NUR ---
DISCHARGE INSTRUCTIONS REVIEWED
--- NOTE | 2019-10-09 12:39 | NUR ---
DISCHARGE INSTRUCTIONS REVIEWED
== END 2019-10-09 12:41 | disposition home or self-care (01) ==
LOC: ED 12:20
DX: M46.1 Sacroiliitis, not elsewhere classified (principal); I11.0 Hypertensive heart disease with heart failure; I50.9 Heart failure, unspecified; E11.9 Type 2 diabetes mellitus without complications; K21.9 Gastro-esophageal reflux disease without esophagitis; Z87.891 Personal history of nicotine dependence
CPT/HCPCS: 36415; 72110; 80053; 81003; 82010; 83880; 85025; 93005; 99285

== ENCOUNTER 2020-03-07 17:16 | Inpatient (IN) | payer MEDICAID, OTHER ==
[~2020-03-07] VITALS: Ht 162.6 cm; Wt 72.5 kg
--- NOTE | 2020-03-07 17:20 | NUR ---
PT STATES PALPITATONS AND CHEST TIGHTNESS STARTED SOON BEFORE 911 WAS CALLED. PT PALE AND ANXIOUS, HR 120 SINUS ON MONITOR.
[2020-03-07] MEDS ORDERED: LORazepam 2 MG/ML, 1ML IVPush ONE (17:30)
[2020-03-07] MEDS ORDERED: CARVEDILOL PO (17:30)
[2020-03-07] MEDS ORDERED: SODIUM CHLORIDE FLUSH 10ML SYR IVF ONE (17:30)
[2020-03-07] MEDS ORDERED: SPIRONOLACTONE PO (17:30)
[2020-03-07] MEDS ORDERED: LORazepam 2 MG/ML, 1ML ONE (17:33)
[2020-03-07 17:45] LABS: BASOPHILS # (AUTO) 0.04 x10^3/uL (0-0.1); BASOPHILS % (AUTO) 1 % (0-1); EOSINOPHILS # (AUTO) 0.03 x10^3/uL (0-0.4); EOSINOPHILS % (AUTO) 1 % (1-7); LYMPHOCYTES # (AUTO) 1.04 x10^3/uL (1-3.4); LYMPHOCYTES % (AUTO) 15 % (22-44); MD NO; MEAN CORPUSCULAR HEMOGLOBIN 32.2 pg (27.5-34.5); MEAN CORPUSCULAR HGB CONC 33.7 g/dL (33.2-36.2); MEAN CORPUSCULAR VOLUME 95.7 fL (81-97); MEAN PLATELET VOLUME 9.6 fL (7.4-10.4); MONOCYTES % (AUTO) 10 % (2-9); NEUTROPHILS # (AUTO) 5.11 x10^3/uL (1.8-6.8); NEUTROPHILS % (AUTO) 74 % (42-75); PLATELET COUNT 137 x10^3/uL (130-400); RED CELL DISTRIBUTION WIDTH 14.3 % (9.4-14.8)
[2020-03-07 17:55] LABS: ALBUMIN 4.2 g/dL (3.4-5.0); ANION GAP 15 mmol/L (5-15); CALCIUM 9.6 mg/dL (8.5-10.1); CHLORIDE 99 mmol/L (98-107)
[2020-03-07 18:01] LABS: CREATININE 1.11 mg/dL (0.7-1.3); TROPONIN I < 0.015 ng/mL (0.000-0.045)
--- NOTE | 2020-03-07 18:18 | NUR ---
PT STATES HIS BODY FEELS MORE RELAXED SINCE MEDICATED NOTED ON OCT. AWARE OF PENDING CTA
--- NOTE | 2020-03-07 18:36 | NUR ---
OFF FLOOR TO CT
[2020-03-07] MEDS ORDERED: OMNIPAQUE 350 MG/ML, 75ML BOTTLE ONE (18:52)
--- NOTE | 2020-03-07 19:00 | NUR ---
REPORT RECEIVED FROM MAXIMO BAEZA. PT BACK FROM CT.
--- NOTE | 2020-03-07 19:14 | NUR ---
PT LAYING IN BED, CONVERSING WITH THIS RN. PT PRESENTING TIRED, AND PALE. STATES HE FEELS LIKE HE WAS GOING TO PASS OUT WHEN S/SX STARTED. PT HAS WEAK RADIAL PULSES.
[2020-03-07] MEDS ORDERED: FLUCONAZOLE 50 MG TABLET PO ONE (19:30)
[2020-03-07 19:53] LABS: MICROSCOPIC AUTO
--- NOTE | 2020-03-07 19:55 | NUR ---
BEDRAILS UP X2, PT CONNECTED TO CARDIAC, BP AND O2 MONITORS. CALL LIGHT IN REACH.
[2020-03-07] MEDS ORDERED: FLUCONAZOLE 100 MG TABLET ONE (20:00)
--- NOTE | 2020-03-07 20:24 | NUR ---
FIRST ATTEMPT TO CALL REPORT.
[2020-03-07] MEDS ORDERED: NITROGLYCERIN 0.4 MG BOTTLE (25 TABS) SL PRN (20:30)
[2020-03-07] MEDS ORDERED: POLYETHYLENE GLYCOL 17 GM PACKET PO PRN (20:30)
[2020-03-07] MEDS ORDERED: ONDANSETRON ODT 4 MG PO PRN (20:30)
[2020-03-07] MEDS ORDERED: morphine SULFATE 10 MG/ML, 1ML IVPush PRN (20:30)
[2020-03-07] MEDS ORDERED: BISACODYL 10 MG SUPP PR PRN (20:30)
--- NOTE | 2020-03-07 20:47 | NUR ---
REPORT GIVEN TO GAYE CARDONA RN. PT REMAINS LAYING IN BED, EYES CLOSED RESPIRAITONS EVEN.
[2020-03-07 21:14] LABS: ESTIMATED AVERAGE GLUCOSE 355 mg/dL (0-126)
[2020-03-07 21:16] VITALS: BP 116/83
[2020-03-07] MEDS: INSULIN LISPRO 100 UNITS/ML, PEN SQ-INSULIN SCH (23:20)
[2020-03-07] MEDS: SACUBITRIL/VALSARTAN 24MG-26MG TAB PO SCH (23:21)
[2020-03-07] MEDS: HEPARIN 5,000 UNITS/ML, 1ML SQ SCH (23:21)
[2020-03-07] MEDS: CARVEDILOL 6.25 MG TABLET PO SCH (23:21)
[2020-03-07] MEDS: CLOTRIMAZOLE CRM 1%, 15GM TP SCH (23:22)
[2020-03-07] MEDS: FUROSEMIDE 40 MG TABLET PO SCH (23:22)
[2020-03-07] MEDS: SODIUM CHLORIDE FLUSH 10ML SYR IVF SCH (23:23)
[2020-03-07 23:25] VITALS: BP 115/83
[2020-03-07] MEDS: ACETAMINOPHEN 325 MG TABLET PO PRN (23:39)
[2020-03-07 23:42] LABS: TROPONIN I 0.021 ng/mL (0.000-0.045)
[2020-03-08] VITALS (22 sets, daily range): BP systolic 58–98; BP diastolic 36–76
[2020-03-08] MEDS ORDERED: INSU100V13 SQ-INSULIN (00:13)
[2020-03-08] MEDS ORDERED: TORS20TA2 PO (00:13)
[2020-03-08] MEDS ORDERED: SODIUM CHLORIDE 0.9% 250 ML IV ONE (03:00)
[2020-03-08 05:26] LABS: BASOPHILS # (AUTO) 0.02 x10^3/uL (0-0.1); BASOPHILS % (AUTO) 0 % (0-1); EOSINOPHILS # (AUTO) 0.08 x10^3/uL (0-0.4); EOSINOPHILS % (AUTO) 1 % (1-7); LYMPHOCYTES # (AUTO) 1.54 x10^3/uL (1-3.4); LYMPHOCYTES % (AUTO) 27 % (22-44); MD NO; MEAN CORPUSCULAR HEMOGLOBIN 31.9 pg (27.5-34.5); MEAN CORPUSCULAR VOLUME 96.4 fL (81-97); MEAN PLATELET VOLUME 9.1 fL (7.4-10.4); MONOCYTES # (AUTO) 0.83 x10^3/uL (0.2-0.8); MONOCYTES % (AUTO) 15 % (2-9); NEUTROPHILS # (AUTO) 3.24 x10^3/uL (1.8-6.8); NEUTROPHILS % (AUTO) 57 % (42-75); PLATELET COUNT 125 x10^3/uL (130-400); RED BLOOD COUNT 4.18 x10^6/uL (4.38-5.82); RED CELL DISTRIBUTION WIDTH 14.4 % (9.4-14.8)
[2020-03-08 05:41] LABS: ANION GAP 10 mmol/L (5-15); CALCIUM 8.5 mg/dL (8.5-10.1); CHLORIDE 101 mmol/L (98-107); CREATININE 0.96 mg/dL (0.7-1.3)
[2020-03-08 05:45] LABS: TROPONIN I 0.024 ng/mL (0.000-0.045)
[2020-03-08] MEDS: SACUBITRIL/VALSARTAN 24MG-26MG TAB PO SCH ×2 (08:10→20:17)
[2020-03-08] MEDS: CARVEDILOL 6.25 MG TABLET PO SCH (08:10)
[2020-03-08] MEDS: SENNA/DOCUSATE TABLET PO SCH (08:10)
[2020-03-08] MEDS: HEPARIN 5,000 UNITS/ML, 1ML SQ SCH ×2 (08:11→17:42)
[2020-03-08] MEDS: INSULIN LISPRO 100 UNITS/ML, PEN SQ-INSULIN SCH ×4 (08:11→20:26)
[2020-03-08] MEDS: FUROSEMIDE 40 MG TABLET PO SCH (08:11)
[2020-03-08] MEDS: SODIUM CHLORIDE FLUSH 10ML SYR IVF SCH ×2 (08:12→20:25)
[2020-03-08] MEDS: ASPIRIN 81 MG TABLET EC PO SCH (08:12)
[2020-03-08] MEDS: CLOTRIMAZOLE CRM 1%, 15GM TP SCH ×2 (08:12→20:26)
[2020-03-08] MEDS ORDERED: INSULIN GLARGINE 100 UNITS/ML, PEN SQ-INSULIN SCH ×2 (09:00→09:30)
[2020-03-08] MEDS ORDERED: REGADENOSON 0.4 MG/5 ML SYRINGE ONE (09:10)
[2020-03-08] MEDS ORDERED: SODIUM CHLORIDE 0.9%, 500ML IVBOLUS ONE ×2 (13:00→14:30)
[2020-03-08] MEDS: AMPICILLIN/SULBACTAM 1,500 MG in SODIUM CHLORIDE 0.9% 50 ML IV SCH (17:41)
[2020-03-08] MEDS ORDERED: ALBUMIN HUMAN 25% 100 ML IV SCH (19:30)
[2020-03-08] MEDS ORDERED: ALBUMIN HUMAN 25% 100 ML IV ONE (19:30)
[2020-03-08 19:37] LABS: BASOPHILS # (AUTO) 0.06 x10^3/uL (0-0.1); BASOPHILS % (AUTO) 1 % (0-1); EOSINOPHILS # (AUTO) 0.14 x10^3/uL (0-0.4); EOSINOPHILS % (AUTO) 2 % (1-7); LYMPHOCYTES % (AUTO) 31 % (22-44); MD NO; MEAN CORPUSCULAR HEMOGLOBIN 32.1 pg (27.5-34.5); MEAN CORPUSCULAR HGB CONC 33.1 g/dL (33.2-36.2); MEAN PLATELET VOLUME 9.5 fL (7.4-10.4); MONOCYTES # (AUTO) 0.56 x10^3/uL (0.2-0.8); MONOCYTES % (AUTO) 8 % (2-9); NEUTROPHILS # (AUTO) 4.21 x10^3/uL (1.8-6.8); NEUTROPHILS % (AUTO) 59 % (42-75); PLATELET COUNT 169 x10^3/uL (130-400); RED BLOOD COUNT 4.57 x10^6/uL (4.38-5.82); RED CELL DISTRIBUTION WIDTH 14.7 % (9.4-14.8)
[2020-03-08 19:42] LABS: ALANINE AMINOTRANSFERASE 30 U/L (12-78); ALBUMIN 3.2 g/dL (3.4-5.0); ANION GAP 13 mmol/L (5-15); CALCIUM 8.2 mg/dL (8.5-10.1); CHLORIDE 100 mmol/L (98-107); CREATININE 1.63 mg/dL (0.7-1.3)
[2020-03-08 19:46] LABS: ALKALINE PHOSPHATASE 252 U/L (45-117); BILIRUBIN,TOTAL 0.9 mg/dL (0.2-1.0); TROPONIN I 0.016 ng/mL (0.000-0.045)
[2020-03-08] MEDS ORDERED: SODIUM CHLORIDE 0.9%, 250ML IVBOLUS ONE ×2 (20:30→22:30)
[2020-03-08 22:55] LABS: FREE T4 (FREE THYROXINE) 1.05 ng/dL (0.76-1.46)
[2020-03-08] MEDS ORDERED: DOBUTAMINE/D5W PMX 250 ML IV SCH (23:30)
[2020-03-09] MEDS: AMPICILLIN/SULBACTAM 1,500 MG in SODIUM CHLORIDE 0.9% 50 ML IV SCH ×5 (00:32→22:30)
[2020-03-09] MEDS: HEPARIN 5,000 UNITS/ML, 1ML SQ SCH ×3 (00:33→16:43)
[2020-03-09 01:44] VITALS: BP 83/59
[2020-03-09 05:35] LABS: ALBUMIN 3.6 g/dL (3.4-5.0); ANION GAP 10 mmol/L (5-15); CALCIUM 8.2 mg/dL (8.5-10.1); CHLORIDE 103 mmol/L (98-107)
[2020-03-09 05:39] LABS: ALANINE AMINOTRANSFERASE 61 U/L (12-78); ALKALINE PHOSPHATASE 205 U/L (45-117); BILIRUBIN,TOTAL 0.9 mg/dL (0.2-1.0); CREATININE 1.22 mg/dL (0.7-1.3); TOTAL PROTEIN 6.7 g/dL (6.4-8.2)
[2020-03-09 05:43] LABS: BASOPHILS # (AUTO) 0.04 x10^3/uL (0-0.1); BASOPHILS % (AUTO) 1 % (0-1); EOSINOPHILS % (AUTO) 2 % (1-7); LYMPHOCYTES # (AUTO) 1.77 x10^3/uL (1-3.4); LYMPHOCYTES % (AUTO) 32 % (22-44); MD NO; MEAN CORPUSCULAR HGB CONC 32.7 g/dL (33.2-36.2); MEAN CORPUSCULAR VOLUME 97.7 fL (81-97); MONOCYTES % (AUTO) 13 % (2-9); NEUTROPHILS # (AUTO) 2.92 x10^3/uL (1.8-6.8); NEUTROPHILS % (AUTO) 53 % (42-75); PLATELET COUNT 125 x10^3/uL (130-400); RED CELL DISTRIBUTION WIDTH 14.9 % (9.4-14.8)
[2020-03-09 06:45] VITALS: BP 88/60
[2020-03-09] MEDS: INSULIN LISPRO 100 UNITS/ML, PEN SQ-INSULIN SCH ×4 (07:00→20:56)
[2020-03-09] MEDS: INSULIN GLARGINE 100 UNITS/ML, PEN SQ-INSULIN SCH ×2 (09:30→20:56)
[2020-03-09] MEDS: SENNA/DOCUSATE TABLET PO SCH (09:41)
[2020-03-09] MEDS: CLOTRIMAZOLE CRM 1%, 15GM TP SCH ×2 (09:41→20:56)
[2020-03-09] MEDS: SODIUM CHLORIDE FLUSH 10ML SYR IVF SCH ×2 (09:41→20:57)
[2020-03-09] MEDS: ASPIRIN 81 MG TABLET EC PO SCH (09:41)
[2020-03-09] MEDS: DOBUTAMINE/D5W PMX 250 ML IV SCH (11:55)
[2020-03-09 13:28] VITALS: BP 104/69
[2020-03-09] MEDS ORDERED: FLUCONAZOLE 50 MG TABLET PO ONE (14:30)
[2020-03-09 20:50] VITALS: BP 104/71
[2020-03-09 22:27] VITALS: BP 102/68
[2020-03-09] MEDS ORDERED: DOBUTAMINE/D5W PMX 250 ML IV SCH (23:30)
[2020-03-10] VITALS (7 sets, daily range): BP systolic 87–106; BP diastolic 64–77
[2020-03-10] MEDS: HEPARIN 5,000 UNITS/ML, 1ML SQ SCH ×3 (01:20→16:56)
[2020-03-10] MEDS: DOBUTAMINE/D5W PMX 250 ML IV SCH (02:49)
[2020-03-10] MEDS: AMPICILLIN/SULBACTAM 1,500 MG in SODIUM CHLORIDE 0.9% 50 ML IV SCH (05:25)
[2020-03-10] MEDS: INSULIN LISPRO 100 UNITS/ML, PEN SQ-INSULIN SCH ×4 (08:32→21:00)
[2020-03-10] MEDS: SENNA/DOCUSATE TABLET PO SCH (08:33)
[2020-03-10] MEDS: ASPIRIN 81 MG TABLET EC PO SCH (08:33)
[2020-03-10] MEDS: SODIUM CHLORIDE FLUSH 10ML SYR IVF SCH ×2 (08:34→21:00)
[2020-03-10] MEDS: CLOTRIMAZOLE CRM 1%, 15GM TP SCH ×2 (08:34→21:19)
[2020-03-10] MEDS: INSULIN GLARGINE 100 UNITS/ML, PEN SQ-INSULIN SCH ×2 (10:19→21:19)
[2020-03-10] MEDS: FLUCONAZOLE 200 MG TABLET PO SCH (10:19)
[2020-03-10] MEDS: AMOXICILLIN/CLAV 875-125MG TABLET PO SCH ×2 (10:19→20:48)
[2020-03-10] MEDS ORDERED: DOBUTAMINE/D5W PMX 250 ML IV SCH (12:00)
[2020-03-10] MEDS: ACETAMINOPHEN 325 MG TABLET PO PRN (13:17)
[2020-03-10] MEDS: POTASSIUM CHLORIDE 20 MEQ TAB.ER.PRT PO SCH (16:56)
[2020-03-11] MEDS: HEPARIN 5,000 UNITS/ML, 1ML SQ SCH ×4 (00:08→21:10)
[2020-03-11] MEDS ORDERED: SIMETHICONE 80 MG CHEW TAB PO PRN (01:00)
[2020-03-11 01:06] VITALS: BP 92/65
[2020-03-11 05:26] LABS: ALBUMIN 3.4 g/dL (3.4-5.0); ANION GAP 9 mmol/L (5-15); CALCIUM 8.6 mg/dL (8.5-10.1); CHLORIDE 102 mmol/L (98-107)
[2020-03-11 05:31] LABS: ALANINE AMINOTRANSFERASE 127 U/L (12-78); ALKALINE PHOSPHATASE 243 U/L (45-117); BILIRUBIN,TOTAL 0.8 mg/dL (0.2-1.0); CREATININE 0.87 mg/dL (0.7-1.3); TOTAL PROTEIN 7.1 g/dL (6.4-8.2)
[2020-03-11 06:57] VITALS: BP 96/76
[2020-03-11] MEDS: INSULIN LISPRO 100 UNITS/ML, PEN SQ-INSULIN SCH ×4 (07:00→21:00)
[2020-03-11 08:08] VITALS: BP_SYST 91; BP_SYST 99; BP_DIAS 70; BP_DIAS 72
[2020-03-11] MEDS: INSULIN GLARGINE 100 UNITS/ML, PEN SQ-INSULIN SCH ×2 (09:48→21:15)
[2020-03-11] MEDS: POTASSIUM CHLORIDE 20 MEQ TAB.ER.PRT PO SCH ×2 (09:50→17:05)
[2020-03-11] MEDS: SENNA/DOCUSATE TABLET PO SCH (09:50)
[2020-03-11] MEDS: AMOXICILLIN/CLAV 875-125MG TABLET PO SCH ×2 (09:50→21:01)
[2020-03-11] MEDS: FLUCONAZOLE 200 MG TABLET PO SCH (09:51)
[2020-03-11] MEDS: ASPIRIN 81 MG TABLET EC PO SCH (09:51)
[2020-03-11] MEDS: CLOTRIMAZOLE CRM 1%, 15GM TP SCH ×2 (09:54→21:06)
[2020-03-11] MEDS: SODIUM CHLORIDE FLUSH 10ML SYR IVF SCH ×2 (09:55→21:01)
[2020-03-11 12:14] VITALS: BP 108/79
[2020-03-11 13:15] VITALS: BP 86/64
[2020-03-11 20:51] VITALS: BP 88/62
[2020-03-11] MEDS: FINASTERIDE 5 MG TABLET PO SCH (22:49)
[2020-03-12 03:14] VITALS: BP 92/70
[2020-03-12 05:51] LABS: ALBUMIN 3.5 g/dL (3.4-5.0); ANION GAP 8 mmol/L (5-15); CALCIUM 8.8 mg/dL (8.5-10.1); CHLORIDE 103 mmol/L (98-107)
[2020-03-12 05:55] LABS: ALANINE AMINOTRANSFERASE 214 U/L (12-78); ALKALINE PHOSPHATASE 254 U/L (45-117); CREATININE 0.99 mg/dL (0.7-1.3)
[2020-03-12] MEDS: INSULIN LISPRO 100 UNITS/ML, PEN SQ-INSULIN SCH ×4 (07:07→21:37)
[2020-03-12] MEDS: HEPARIN 5,000 UNITS/ML, 1ML SQ SCH ×3 (08:00→23:57)
[2020-03-12 08:44] VITALS: BP 102/71
[2020-03-12] MEDS: ASPIRIN 81 MG TABLET EC PO SCH (08:53)
[2020-03-12] MEDS: FLUCONAZOLE 200 MG TABLET PO SCH (08:53)
[2020-03-12] MEDS: AMOXICILLIN/CLAV 875-125MG TABLET PO SCH (08:53)
[2020-03-12] MEDS: SENNA/DOCUSATE TABLET PO SCH (08:53)
[2020-03-12] MEDS: POTASSIUM CHLORIDE 20 MEQ TAB.ER.PRT PO SCH (08:53)
[2020-03-12] MEDS: FINASTERIDE 5 MG TABLET PO SCH (08:53)
[2020-03-12] MEDS: CLOTRIMAZOLE CRM 1%, 15GM TP SCH ×2 (08:55→21:36)
[2020-03-12] MEDS: INSULIN GLARGINE 100 UNITS/ML, PEN SQ-INSULIN SCH ×2 (08:55→21:37)
[2020-03-12] MEDS: SODIUM CHLORIDE FLUSH 10ML SYR IVF SCH ×2 (08:56→21:37)
[2020-03-12] MEDS: SULFAMETH./TRIMETHOPRIM DS 800MG/160MG TABLET PO SCH ×2 (12:04→21:26)
[2020-03-12 12:07] VITALS: BP 84/60
[2020-03-12 13:35] VITALS: BP 97/73
[2020-03-12 21:04] VITALS: BP 94/69
[2020-03-13 03:17] VITALS: BP 102/82
[2020-03-13 05:43] LABS: ALBUMIN 3.4 g/dL (3.4-5.0); ANION GAP 9 mmol/L (5-15); CALCIUM 8.6 mg/dL (8.5-10.1); CHLORIDE 99 mmol/L (98-107)
[2020-03-13 05:46] LABS: ALANINE AMINOTRANSFERASE 265 U/L (12-78); ALKALINE PHOSPHATASE 238 U/L (45-117); BILIRUBIN,TOTAL 1.1 mg/dL (0.2-1.0)
[2020-03-13 06:34] VITALS: BP 101/72
[2020-03-13] MEDS: INSULIN LISPRO 100 UNITS/ML, PEN SQ-INSULIN SCH ×4 (07:00→20:51)
[2020-03-13] MEDS: HEPARIN 5,000 UNITS/ML, 1ML SQ SCH ×2 (07:58→17:21)
[2020-03-13] MEDS ORDERED: FUROSEMIDE 40 MG/4 ML IV ONE (08:30)
[2020-03-13] MEDS ORDERED: FLUCONAZOLE 100 MG TABLET ONE (08:38)
[2020-03-13] MEDS: FINASTERIDE 5 MG TABLET PO SCH (08:54)
[2020-03-13] MEDS: FLUCONAZOLE 200 MG TABLET PO SCH (08:54)
[2020-03-13] MEDS: SENNA/DOCUSATE TABLET PO SCH (08:54)
[2020-03-13] MEDS: SULFAMETH./TRIMETHOPRIM DS 800MG/160MG TABLET PO SCH ×2 (08:54→20:51)
[2020-03-13] MEDS: ASPIRIN 81 MG TABLET EC PO SCH (08:54)
[2020-03-13] MEDS: INSULIN GLARGINE 100 UNITS/ML, PEN SQ-INSULIN SCH ×3 (09:00→20:51)
[2020-03-13] MEDS: CLOTRIMAZOLE CRM 1%, 15GM TP SCH ×2 (09:01→20:52)
[2020-03-13] MEDS: SODIUM CHLORIDE FLUSH 10ML SYR IVF SCH ×3 (09:01→20:51)
[2020-03-13 09:54] LABS: INTERNATIONAL NORMALIZED RATIO 1.51 (0.93-1.1); PROTHROMBIN TIME 16.1 Seconds (9.6-11.5)
[2020-03-13 12:32] VITALS: BP 100/72
[2020-03-13 13:22] LABS: OSMOLALITY,URINE 306 mOsm/kg (500-850)
[2020-03-13] MEDS ORDERED: DEXTROSE 50%, 50ML SYRINGE IVPush PRN (14:00)
[2020-03-13] MEDS ORDERED: DEXTROSE 4 GM TAB.CHEW PO PRN (14:00)
[2020-03-13] MEDS ORDERED: GLUCAGON 1 MG IM PRN (14:00)
[2020-03-13 19:05] VITALS: BP 91/70
[2020-03-14 00:31] VITALS: BP 99/69
[2020-03-14] MEDS: HEPARIN 5,000 UNITS/ML, 1ML SQ SCH ×3 (00:32→16:17)
[2020-03-14 05:47] LABS: BASOPHILS # (AUTO) 0.03 x10^3/uL (0-0.1); BASOPHILS % (AUTO) 0 % (0-1); EOSINOPHILS # (AUTO) 0.03 x10^3/uL (0-0.4); EOSINOPHILS % (AUTO) 0 % (1-7); LYMPHOCYTES # (AUTO) 1.63 x10^3/uL (1-3.4); LYMPHOCYTES % (AUTO) 24 % (22-44); MD NO; MEAN CORPUSCULAR HEMOGLOBIN 31.7 pg (27.5-34.5); MEAN CORPUSCULAR HGB CONC 32.1 g/dL (33.2-36.2); MEAN CORPUSCULAR VOLUME 98.7 fL (81-97); MEAN PLATELET VOLUME 8.4 fL (7.4-10.4); MONOCYTES # (AUTO) 0.97 x10^3/uL (0.2-0.8); MONOCYTES % (AUTO) 14 % (2-9); NEUTROPHILS # (AUTO) 4.29 x10^3/uL (1.8-6.8); NEUTROPHILS % (AUTO) 62 % (42-75); PLATELET COUNT 203 x10^3/uL (130-400); RED BLOOD COUNT 4.55 x10^6/uL (4.38-5.82); RED CELL DISTRIBUTION WIDTH 15.2 % (9.4-14.8)
[2020-03-14 05:54] LABS: ALBUMIN 3.5 g/dL (3.4-5.0); ANION GAP 10 mmol/L (5-15); CALCIUM 8.8 mg/dL (8.5-10.1); CHLORIDE 97 mmol/L (98-107)
[2020-03-14 05:59] LABS: ALANINE AMINOTRANSFERASE 361 U/L (12-78); ALKALINE PHOSPHATASE 243 U/L (45-117); BILIRUBIN,TOTAL 1.2 mg/dL (0.2-1.0); CREATININE 1.18 mg/dL (0.7-1.3); TOTAL PROTEIN 6.9 g/dL (6.4-8.2)
[2020-03-14] MEDS: INSULIN LISPRO 100 UNITS/ML, PEN SQ-INSULIN SCH ×4 (07:00→20:34)
[2020-03-14 07:16] VITALS: BP 100/70
[2020-03-14] MEDS: FINASTERIDE 5 MG TABLET PO SCH (08:50)
[2020-03-14] MEDS: FLUCONAZOLE 200 MG TABLET PO SCH (08:50)
[2020-03-14] MEDS: ASPIRIN 81 MG TABLET EC PO SCH (08:50)
[2020-03-14] MEDS: SODIUM CHLORIDE FLUSH 10ML SYR IVF SCH ×4 (08:51→20:35)
[2020-03-14] MEDS: SENNA/DOCUSATE TABLET PO SCH (08:51)
[2020-03-14] MEDS: SULFAMETH./TRIMETHOPRIM DS 800MG/160MG TABLET PO SCH ×2 (08:51→20:33)
[2020-03-14] MEDS: CLOTRIMAZOLE CRM 1%, 15GM TP SCH ×2 (08:52→20:35)
[2020-03-14 10:03] LABS: INTERNATIONAL NORMALIZED RATIO 1.43 (0.93-1.1); PROTHROMBIN TIME 15.2 Seconds (9.6-11.5)
[2020-03-14] MEDS: FUROSEMIDE 40 MG/4 ML IV SCH ×2 (11:55→17:39)
[2020-03-14] MEDS ORDERED: MICAFUNGIN 100 MG in SODIUM CHLORIDE 0.9% 100 ML IV SCH (12:00)
[2020-03-14 12:18] VITALS: BP 91/68
[2020-03-14 20:32] VITALS: BP 89/65
[2020-03-14] MEDS: INSULIN GLARGINE 100 UNITS/ML, PEN SQ-INSULIN SCH (20:35)
[2020-03-15 00:12] VITALS: BP 81/57
[2020-03-15] MEDS: HEPARIN 5,000 UNITS/ML, 1ML SQ SCH ×3 (00:14→20:41)
[2020-03-15 06:40] VITALS: BP 90/64
[2020-03-15 06:41] LABS: ALBUMIN 3.4 g/dL (3.4-5.0); ANION GAP 7 mmol/L (5-15); CALCIUM 8.1 mg/dL (8.5-10.1); CHLORIDE 98 mmol/L (98-107)
[2020-03-15 06:46] LABS: ALANINE AMINOTRANSFERASE 409 U/L (12-78); ALKALINE PHOSPHATASE 222 U/L (45-117); BILIRUBIN,TOTAL 1.3 mg/dL (0.2-1.0); TOTAL PROTEIN 6.7 g/dL (6.4-8.2)
[2020-03-15] MEDS: INSULIN LISPRO 100 UNITS/ML, PEN SQ-INSULIN SCH ×4 (07:00→20:42)
[2020-03-15] MEDS: SODIUM CHLORIDE FLUSH 10ML SYR IVF SCH ×4 (09:00→21:00)
[2020-03-15] MEDS: FUROSEMIDE 40 MG/4 ML IV SCH ×2 (11:13→17:45)
[2020-03-15] MEDS: SENNA/DOCUSATE TABLET PO SCH (11:15)
[2020-03-15] MEDS: SULFAMETH./TRIMETHOPRIM DS 800MG/160MG TABLET PO SCH ×2 (11:15→20:41)
[2020-03-15] MEDS: ASPIRIN 81 MG TABLET EC PO SCH (11:15)
[2020-03-15] MEDS: FINASTERIDE 5 MG TABLET PO SCH (11:23)
[2020-03-15] MEDS: CLOTRIMAZOLE CRM 1%, 15GM TP SCH (11:27)
[2020-03-15] MEDS: INSULIN GLARGINE 100 UNITS/ML, PEN SQ-INSULIN SCH ×2 (11:39→20:43)
[2020-03-15 12:09] VITALS: BP 92/66
[2020-03-15] MEDS: MICAFUNGIN 50 MG in SODIUM CHLORIDE 0.9% 100 ML IV SCH (13:30)
[2020-03-15 13:43] LABS: ANA SCREEN NEGATIVE (Negative)
[2020-03-15] MEDS: METOLAZONE 2.5 MG TABLET PO SCH (16:58)
[2020-03-15 20:39] VITALS: BP 89/68
[2020-03-15] MEDS: KETOCONAZOLE 2%, 30GM TP SCH (21:32)
[2020-03-16 00:42] VITALS: BP 101/46
[2020-03-16] MEDS: HEPARIN 5,000 UNITS/ML, 1ML SQ SCH ×3 (03:00→19:00)
[2020-03-16 05:57] LABS: INTERNATIONAL NORMALIZED RATIO 1.56 (0.93-1.1); PROTHROMBIN TIME 16.6 Seconds (9.6-11.5)
[2020-03-16 06:14] LABS: CHLORIDE 97 mmol/L (98-107)
[2020-03-16 06:36] VITALS: BP 97/67
[2020-03-16 06:40] LABS: ALANINE AMINOTRANSFERASE 394 U/L (12-78); ALBUMIN 3.4 g/dL (3.4-5.0); ALKALINE PHOSPHATASE 234 U/L (45-117); ANION GAP 9 mmol/L (5-15); BILIRUBIN,TOTAL 1.2 mg/dL (0.2-1.0); CALCIUM 8.2 mg/dL (8.5-10.1); CREATININE 1.37 mg/dL (0.7-1.3)
[2020-03-16] MEDS: INSULIN LISPRO 100 UNITS/ML, PEN SQ-INSULIN SCH ×4 (07:00→21:00)
[2020-03-16] MEDS: METOLAZONE 2.5 MG TABLET PO SCH (07:30)
[2020-03-16] MEDS ORDERED: METOLAZONE 5 MG TABLET ONE (08:27)
[2020-03-16] MEDS: ASPIRIN 81 MG TABLET EC PO SCH (08:30)
[2020-03-16] MEDS: SULFAMETH./TRIMETHOPRIM DS 800MG/160MG TABLET PO SCH ×2 (08:30→21:08)
[2020-03-16] MEDS: SODIUM CHLORIDE FLUSH 10ML SYR IVF SCH ×4 (08:31→21:08)
[2020-03-16] MEDS: SENNA/DOCUSATE TABLET PO SCH (08:32)
[2020-03-16] MEDS: KETOCONAZOLE 2%, 30GM TP SCH ×2 (08:33→21:09)
[2020-03-16] MEDS: INSULIN GLARGINE 100 UNITS/ML, PEN SQ-INSULIN SCH ×2 (09:07→21:00)
[2020-03-16] MEDS: FUROSEMIDE 40 MG/4 ML IV SCH (09:07)
[2020-03-16] MEDS: FINASTERIDE 5 MG TABLET PO SCH (09:08)
[2020-03-16] MEDS: LEVOTHYROXINE 25 MCG TABLET PO SCH (09:30)
[2020-03-16 10:12] LABS: CHLORIDE,URINE RANDOM 81 mmol/L; POTASSIUM,URINE RANDOM 41 mmol/L; SODIUM,URINE RANDOM 53 mmol/L
[2020-03-16 11:06] LABS: OSMOLALITY,URINE 495 mOsm/kg (500-850)
[2020-03-16 12:18] VITALS: BP 97/69
[2020-03-16] MEDS ORDERED: CEFTRIAXONE 250 MG IM ONE (12:30)
[2020-03-16] MEDS ORDERED: AZITHROMYCIN 500 MG TABLET PO ONE (12:30)
[2020-03-16] MEDS: MICAFUNGIN 50 MG in SODIUM CHLORIDE 0.9% 100 ML IV SCH (14:27)
[2020-03-16] MEDS: SPIRONOLACTONE 25 MG TABLET PO SCH (15:26)
[2020-03-16] MEDS: TORSEMIDE 20 MG TABLET PO SCH (17:09)
[2020-03-16 19:09] VITALS: BP 101/71
[2020-03-17 01:40] VITALS: BP 95/67
[2020-03-17] MEDS: HEPARIN 5,000 UNITS/ML, 1ML SQ SCH ×3 (03:00→18:03)
[2020-03-17 05:14] LABS: BASOPHILS # (AUTO) 0.02 x10^3/uL (0-0.1); BASOPHILS % (AUTO) 0 % (0-1); EOSINOPHILS # (AUTO) 0.05 x10^3/uL (0-0.4); EOSINOPHILS % (AUTO) 1 % (1-7); LYMPHOCYTES # (AUTO) 1.75 x10^3/uL (1-3.4); LYMPHOCYTES % (AUTO) 26 % (22-44); MD NO; MEAN CORPUSCULAR HEMOGLOBIN 31.5 pg (27.5-34.5); MEAN CORPUSCULAR HGB CONC 32.4 g/dL (33.2-36.2); MEAN CORPUSCULAR VOLUME 97.4 fL (81-97); MEAN PLATELET VOLUME 7.9 fL (7.4-10.4); MONOCYTES # (AUTO) 0.79 x10^3/uL (0.2-0.8); MONOCYTES % (AUTO) 12 % (2-9); NEUTROPHILS # (AUTO) 4.15 x10^3/uL (1.8-6.8); NEUTROPHILS % (AUTO) 61 % (42-75); PLATELET COUNT 193 x10^3/uL (130-400); RED BLOOD COUNT 4.49 x10^6/uL (4.38-5.82); RED CELL DISTRIBUTION WIDTH 15.3 % (9.4-14.8)
[2020-03-17] MEDS: LEVOTHYROXINE 25 MCG TABLET PO SCH (05:29)
[2020-03-17 05:32] LABS: CHLORIDE 94 mmol/L (98-107)
[2020-03-17 05:43] LABS: ALANINE AMINOTRANSFERASE 313 U/L (12-78); ALBUMIN 3.2 g/dL (3.4-5.0); ALKALINE PHOSPHATASE 238 U/L (45-117); ANION GAP 10 mmol/L (5-15); BILIRUBIN,TOTAL 1.2 mg/dL (0.2-1.0); CALCIUM 7.8 mg/dL (8.5-10.1); CHOL/HDL RATIO 9.1; CHOLESTEROL, TOTAL 164 mg/dL (140-239); CREATININE 1.51 mg/dL (0.7-1.3); HDL CHOL % 11 % (26-37); HDL CHOLESTEROL (DIRECT) 18 mg/dL (40-60); LDL CHOLESTEROL,CALCULATED 131 mg/dL (54-169); LDL/HDL RATIO 7.3 (0.5-3.0); TOTAL PROTEIN 6.5 g/dL (6.4-8.2); TRIGLYCERIDES 76 mg/dL (50-200); VLDL CHOLESTEROL 15 mg/dL (0-25)
[2020-03-17 06:18] VITALS: BP 95/65
[2020-03-17] MEDS: INSULIN LISPRO 100 UNITS/ML, PEN SQ-INSULIN SCH ×4 (07:00→20:31)
[2020-03-17] MEDS: TORSEMIDE 20 MG TABLET PO SCH ×2 (07:23→18:03)
[2020-03-17] MEDS: METOLAZONE 2.5 MG TABLET PO SCH (07:24)
[2020-03-17] MEDS: SODIUM CHLORIDE FLUSH 10ML SYR IVF SCH ×4 (07:26→20:30)
[2020-03-17] MEDS: SULFAMETH./TRIMETHOPRIM DS 800MG/160MG TABLET PO SCH ×2 (08:35→20:30)
[2020-03-17] MEDS: INSULIN GLARGINE 100 UNITS/ML, PEN SQ-INSULIN SCH ×2 (08:35→20:31)
[2020-03-17] MEDS: SPIRONOLACTONE 25 MG TABLET PO SCH (08:35)
[2020-03-17] MEDS: FINASTERIDE 5 MG TABLET PO SCH (08:35)
[2020-03-17] MEDS: ASPIRIN 81 MG TABLET EC PO SCH (08:35)
[2020-03-17] MEDS: SENNA/DOCUSATE TABLET PO SCH (08:35)
[2020-03-17] MEDS: KETOCONAZOLE 2%, 30GM TP SCH ×2 (08:38→20:32)
[2020-03-17 12:18] VITALS: BP 93/59
[2020-03-17] MEDS: MICAFUNGIN 50 MG in SODIUM CHLORIDE 0.9% 100 ML IV SCH (13:33)
[2020-03-17 18:57] VITALS: BP 98/62
[2020-03-18 01:01] VITALS: BP 90/60
[2020-03-18] MEDS: HEPARIN 5,000 UNITS/ML, 1ML SQ SCH ×2 (02:14→11:00)
[2020-03-18] MEDS: LEVOTHYROXINE 25 MCG TABLET PO SCH (05:43)
[2020-03-18 06:56] LABS: CHLORIDE 90 mmol/L (98-107)
[2020-03-18] MEDS: INSULIN LISPRO 100 UNITS/ML, PEN SQ-INSULIN SCH ×2 (07:00→11:00)
[2020-03-18 07:03] LABS: ALANINE AMINOTRANSFERASE 239 U/L (12-78); ALBUMIN 3.4 g/dL (3.4-5.0); ALKALINE PHOSPHATASE 246 U/L (45-117); ANION GAP 8 mmol/L (5-15); BILIRUBIN,TOTAL 1.3 mg/dL (0.2-1.0); CALCIUM 8.7 mg/dL (8.5-10.1); CREATININE 1.46 mg/dL (0.7-1.3); TOTAL PROTEIN 6.9 g/dL (6.4-8.2)
[2020-03-18 07:10] VITALS: BP 91/60
[2020-03-18] MEDS ORDERED: METOLAZONE 2.5 MG TABLET PO SCH (07:30)
[2020-03-18] MEDS: FINASTERIDE 5 MG TABLET PO SCH (08:59)
[2020-03-18] MEDS: SULFAMETH./TRIMETHOPRIM DS 800MG/160MG TABLET PO SCH (08:59)
[2020-03-18] MEDS: ASPIRIN 81 MG TABLET EC PO SCH (08:59)
[2020-03-18] MEDS: KETOCONAZOLE 2%, 30GM TP SCH (09:00)
[2020-03-18] MEDS: SODIUM CHLORIDE FLUSH 10ML SYR IVF SCH ×2 (09:00)
[2020-03-18] MEDS: SENNA/DOCUSATE TABLET PO SCH (09:00)
[2020-03-18] MEDS: INSULIN GLARGINE 100 UNITS/ML, PEN SQ-INSULIN SCH (09:01)
[2020-03-18] MEDS: TORSEMIDE 20 MG TABLET PO SCH (09:02)
[2020-03-18] MEDS ORDERED: KETO15CR17 TP ×3 (10:15→10:16)
[2020-03-18] MEDS ORDERED: METO2.5T PO (10:15)
[2020-03-18] MEDS ORDERED: FINA5TAB4 PO (10:15)
[2020-03-18] MEDS ORDERED: LEVO25TA2 PO (10:15)
[2020-03-18] MEDS ORDERED: TORS20TA2 PO (10:15)
[2020-03-18] MEDS ORDERED: INSU100I13 SQ-INSULIN (10:15)
[2020-03-18] MEDS ORDERED: INSU100I11 SQ-INSULIN (10:15)
[2020-03-18 12:28] VITALS: BP 90/67
== END 2020-03-18 13:30 | disposition home or self-care (01) | DRG 501 ==
LOC: ED 17:35 → EDIP 19:30 → 5SO 21:01 → DCLOUNGE 03-18 13:25
PROVIDERS: ADMIT Internal Medicine; ATTEND Internal Medicine
DX: N48.1 Balanitis (principal); E03.9 Hypothyroidism, unspecified; E11.65 Type 2 diabetes mellitus with hyperglycemia; E78.5 Hyperlipidemia, unspecified; E87.2 Acidosis; E87.6 Hypokalemia; F10.10 Alcohol abuse, uncomplicated; I07.1 Rheumatic tricuspid insufficiency; I11.0 Hypertensive heart disease with heart failure; R18.8 Other ascites; I25.5 Ischemic cardiomyopathy; E22.2 Syndrome of inappropriate secretion of antidiuretic hormone; I50.23 Acute on chronic systolic (congestive) heart failure; K76.1 Chronic passive congestion of liver; N17.0 Acute kidney failure with tubular necrosis; N47.1 Phimosis; R57.0 Cardiogenic shock; Z79.4 Long term (current) use of insulin; Z83.3 Family history of diabetes mellitus; Z87.891 Personal history of nicotine dependence; Z91.19 Patient's noncompliance with other medical treatment and regimen; Z95.810 Presence of automatic (implantable) cardiac defibrillator
CPT/HCPCS: 36415; 71045; 71275; 74181; 76700; 78452; 80048; 80053; 80061; 81001; 82040; 82390; 82436; 82533; 82728; 82784; 82947; 82962; 83036; 83516; 83540; 83550; 83880; 83930; 83935; 84133; 84300; 84439; 84443; 84484; 85025; 85379; 85610; 86038; 86644; 86645; 86664; 86665; 86694; 86695; 86696; 86704; 86706; 86708; 86709; 86803; 87040; 87086; 87106; 87340; 87806; 93005; 93017; 93306; 93975; G0378; J0696; J1644; J1940; J2248; J2785; P9047; Q9967; A9502; C9898; G0475; J0295; J1250; J1815; J2060; J7040; J7050

== ENCOUNTER → 2020-04-05 | Outpatient (CLI) | payer MEDICAID ==
[~2020-04-05] MED LIST changes: +CARVEDILOL PO; +FINA5TAB4 PO; +INSU100I11 SQ-INSULIN; +INSU100I13 SQ-INSULIN; +INSU100V13 SQ-INSULIN; +KETO15CR17 TP; +LEVO25TA2 PO; +METO2.5T PO; +SPIRONOLACTONE PO; +TORS20TA2 PO
== END | disposition home or self-care (01) ==
LOC: CVU 06:46
PROVIDERS: ATTEND Registered Nurse
DX: M79.89 Other specified soft tissue disorders (principal); L29.9 Pruritus, unspecified
CPT/HCPCS: 93971

== ENCOUNTER 2020-12-21 10:41 | Inpatient (IN) | payer MEDICAID ==
[~2020-12-21] VITALS: Ht 152.4 cm; Wt 71.7 kg
[2020-12-21] MEDS ORDERED: SODIUM CHLORIDE FLUSH 10ML SYR IVF ONE (11:30)
--- NOTE | 2020-12-21 11:38 | NUR ---
PT BROUGHT BACK TO ROOM VIA WHEELCHAIR. PT STATED THAT OVER THE PAST 4 MONTHS HE HAS BEEN FEELING VERY WEAK AND HAS LOST ABOUT 80LBS. PT STATED THAT HE IS WORKING A LOT AND DOES NOT REALLY EAT OR DRINK WHILE AT WORK AND THEN IS TOO TIRED TO EAT WHEN HE GETS HOME. PT STATED THAT HE IS STILL TAKING HIS MEDICATIONS AND HIS LASIX FOR HIS CHF, DM AND ASCITES. PT STATED THAT HE FEELS DIZZY WHEN HE STANDS UP AND LIKE HIS LEGS ARE GOING TO GIVE OUT. PT DENIES ANY SOB, CP, N/V/D OR FEVER
[2020-12-21 11:50] LABS: MICROSCOPIC NOT IND
[2020-12-21 11:52] LABS: CHLORIDE,URINE RANDOM 125 mmol/L; POTASSIUM,URINE RANDOM 10 mmol/L; SODIUM,URINE RANDOM 112 mmol/L
[2020-12-21 12:01] LABS: BASOPHILS % (AUTO) 1 % (0-1); EOSINOPHILS % (AUTO) 2 % (1-7); LYMPHOCYTES % (AUTO) 20 % (22-44); MEAN CORPUSCULAR HEMOGLOBIN 29.7 pg (27.5-34.5); MEAN CORPUSCULAR HGB CONC 33.7 g/dL (33.2-36.2); MEAN PLATELET VOLUME 8.4 fL (7.4-10.4); MONOCYTES % (AUTO) 9 % (2-9); NEUTROPHILS % (AUTO) 69 % (42-75); PLATELET COUNT 184 x10^3/uL (130-400); RED BLOOD COUNT 5.17 x10^6/uL (4.38-5.82); RED CELL DISTRIBUTION WIDTH 14.2 % (9.4-14.8)
[2020-12-21 12:09] LABS: ALBUMIN 3.8 g/dL (3.4-5.0); ANION GAP 12 mmol/L (5-15); CALCIUM 9.3 mg/dL (8.5-10.1); CHLORIDE 97 mmol/L (98-107)
[2020-12-21 12:12] LABS: MD NO
--- NOTE | 2020-12-21 12:30 | NUR ---
MEAL TRAY PROVIDED.
[2020-12-21 12:42] LABS: ALANINE AMINOTRANSFERASE 13 U/L (12-78); ALKALINE PHOSPHATASE 221 U/L (45-117); CREATININE 0.74 mg/dL (0.7-1.3)
--- NOTE | 2020-12-21 13:30 | NUR ---
PT RESTING COMFORTABLY IN BED. HOANG LIGHT WITHIN REACH
[2020-12-21] MEDS ORDERED: FUROSEMIDE 20 MG/2 ML ONE (13:41)
[2020-12-21] MEDS ORDERED: INSULIN SINGLE DOSE, ER ONE (13:42)
[2020-12-21] MEDS ORDERED: INSULIN REGULAR 100 UNITS/ML, 3ML VIAL SQ-INSULIN ONE (14:00)
[2020-12-21] MEDS ORDERED: FUROSEMIDE 20 MG/2 ML IV ONE (14:00)
[2020-12-21] MEDS ORDERED: FUROSEMIDE 40 MG/4 ML IV ONE (14:00)
--- NOTE | 2020-12-21 14:08 | NUR ---
ATTEMPT TO CALL REPORT. UNABLE TO GET A HOLD OF RN. WILL TRY AGAIN.
--- NOTE | 2020-12-21 14:28 | NUR ---
REPORT GIVEN TO MAXIMO COLLIER.
[2020-12-21 14:48] VITALS: BP 117/77
[2020-12-21 18:24] VITALS: BP 103/66
[2020-12-21] MEDS ORDERED: DEXTROSE 50%, 50ML SYRINGE IVPush PRN (18:30)
[2020-12-21] MEDS ORDERED: DEXTROSE 4 GM TAB.CHEW PO PRN (18:30)
[2020-12-21] MEDS ORDERED: GLUCAGON 1 MG IM PRN (18:30)
[2020-12-21 20:00] VITALS: BP 103/66
[2020-12-21 20:02] LABS: TROPONIN I < 0.015 ng/mL (0.000-0.045)
[2020-12-21] MEDS: SODIUM CHLORIDE FLUSH 10ML SYR IVF SCH (20:14)
[2020-12-21] MEDS: INSULIN GLARGINE 100 UNITS/ML, PEN SQ-INSULIN SCH (22:01)
[2020-12-21] MEDS: INSULIN LISPRO 100 UNITS/ML, PEN SQ-INSULIN SCH (22:02)
[2020-12-22 01:29] LABS: BASOPHILS % (AUTO) 1 % (0-1); EOSINOPHILS % (AUTO) 3 % (1-7); LYMPHOCYTES % (AUTO) 17 % (22-44); MEAN CORPUSCULAR HEMOGLOBIN 29.7 pg (27.5-34.5); MEAN CORPUSCULAR HGB CONC 33.1 g/dL (33.2-36.2); MEAN PLATELET VOLUME 8.3 fL (7.4-10.4); MONOCYTES % (AUTO) 10 % (2-9); NEUTROPHILS % (AUTO) 69 % (42-75); PLATELET COUNT 181 x10^3/uL (130-400)
[2020-12-22 01:30] LABS: MD NO
[2020-12-22 01:39] VITALS: BP 98/63
[2020-12-22 01:41] LABS: ALANINE AMINOTRANSFERASE 13 U/L (12-78); ALBUMIN 3.2 g/dL (3.4-5.0); ANION GAP 10 mmol/L (5-15); CALCIUM 8.6 mg/dL (8.5-10.1); CHLORIDE 92 mmol/L (98-107); CREATININE 1.25 mg/dL (0.7-1.3)
[2020-12-22 01:44] LABS: ALKALINE PHOSPHATASE 206 U/L (45-117); BILIRUBIN,TOTAL 0.8 mg/dL (0.2-1.0)
[2020-12-22 01:46] LABS: TROPONIN I < 0.015 ng/mL (0.000-0.045)
[2020-12-22 02:24] LABS: ESTIMATED AVERAGE GLUCOSE 355 mg/dL (0-126)
[2020-12-22] MEDS ORDERED: INSULIN LISPRO 100 UNIT/ML, 3ML VIAL SQ-INSULIN ONE (02:30)
[2020-12-22] MEDS: LEVOTHYROXINE 25 MCG TABLET PO SCH (06:13)
[2020-12-22 06:53] VITALS: BP 102/71
[2020-12-22 07:03] VITALS: BP 102/71
[2020-12-22 07:25] LABS: TROPONIN I < 0.015 ng/mL (0.000-0.045)
[2020-12-22] MEDS ORDERED: POTASSIUM CHLORIDE 20 MEQ TAB.ER.PRT PO SCH (08:00)
[2020-12-22] MEDS: POTASSIUM CHLORIDE 20 MEQ TAB.ER.PRT PO SCH ×2 (08:38→16:17)
[2020-12-22] MEDS: FINASTERIDE 5 MG TABLET PO SCH (08:38)
[2020-12-22] MEDS: ASPIRIN 81 MG TABLET EC PO SCH (08:38)
[2020-12-22] MEDS: FUROSEMIDE 20 MG/2 ML IV SCH ×2 (08:39→16:17)
[2020-12-22] MEDS: INSULIN LISPRO 100 UNITS/ML, PEN SQ-INSULIN SCH ×4 (08:40→20:24)
[2020-12-22] MEDS: SODIUM CHLORIDE FLUSH 10ML SYR IVF SCH ×2 (08:40→20:24)
[2020-12-22] MEDS: INSULIN GLARGINE 100 UNITS/ML, PEN SQ-INSULIN SCH ×2 (08:52→20:25)
[2020-12-22 13:34] VITALS: BP 100/72
[2020-12-22 18:37] VITALS: BP 114/82
[2020-12-23 04:57] LABS: BASOPHILS % (AUTO) 1 % (0-1); EOSINOPHILS % (AUTO) 4 % (1-7); LYMPHOCYTES % (AUTO) 24 % (22-44); MEAN CORPUSCULAR HEMOGLOBIN 30.2 pg (27.5-34.5); MEAN CORPUSCULAR HGB CONC 34.1 g/dL (33.2-36.2); MEAN PLATELET VOLUME 8.4 fL (7.4-10.4); MONOCYTES % (AUTO) 11 % (2-9); NEUTROPHILS % (AUTO) 60 % (42-75); PLATELET COUNT 187 x10^3/uL (130-400); RED BLOOD COUNT 5.52 x10^6/uL (4.38-5.82); RED CELL DISTRIBUTION WIDTH 14.2 % (9.4-14.8)
[2020-12-23 05:02] LABS: ANION GAP 4 mmol/L (5-15); CHLORIDE 97 mmol/L (98-107); CREATININE 0.89 mg/dL (0.7-1.3)
[2020-12-23 05:15] LABS: MD NO
[2020-12-23] MEDS: LEVOTHYROXINE 25 MCG TABLET PO SCH (05:39)
[2020-12-23 07:34] VITALS: BP 107/72
[2020-12-23] MEDS: FINASTERIDE 5 MG TABLET PO SCH (07:53)
[2020-12-23] MEDS: FUROSEMIDE 20 MG/2 ML IV SCH ×2 (07:53→16:27)
[2020-12-23] MEDS: POTASSIUM CHLORIDE 20 MEQ TAB.ER.PRT PO SCH ×2 (07:53→16:27)
[2020-12-23] MEDS: ASPIRIN 81 MG TABLET EC PO SCH (07:53)
[2020-12-23] MEDS: INSULIN LISPRO 100 UNITS/ML, PEN SQ-INSULIN SCH ×4 (07:54→20:08)
[2020-12-23] MEDS: INSULIN GLARGINE 100 UNITS/ML, PEN SQ-INSULIN SCH ×2 (07:55→20:09)
[2020-12-23] MEDS: SODIUM CHLORIDE FLUSH 10ML SYR IVF SCH ×2 (08:00→20:08)
[2020-12-23 13:10] VITALS: BP 109/79
[2020-12-23] MEDS ORDERED: INSULIN LISPRO 100 UNIT/ML, 3ML VIAL SQ-INSULIN SCH (16:30)
[2020-12-23 18:52] VITALS: BP 95/62
[2020-12-24 00:25] VITALS: BP 102/70
[2020-12-24] MEDS: LEVOTHYROXINE 25 MCG TABLET PO SCH (05:05)
[2020-12-24 05:46] LABS: BASOPHILS % (AUTO) 1 % (0-1); EOSINOPHILS % (AUTO) 5 % (1-7); LYMPHOCYTES % (AUTO) 27 % (22-44); MEAN CORPUSCULAR HEMOGLOBIN 29.9 pg (27.5-34.5); MEAN CORPUSCULAR HGB CONC 33.8 g/dL (33.2-36.2); MEAN PLATELET VOLUME 8.4 fL (7.4-10.4); MONOCYTES % (AUTO) 11 % (2-9); NEUTROPHILS % (AUTO) 56 % (42-75); PLATELET COUNT 178 x10^3/uL (130-400); RED CELL DISTRIBUTION WIDTH 14.1 % (9.4-14.8)
[2020-12-24 05:47] LABS: MD NO
[2020-12-24 06:00] LABS: CHLORIDE 99 mmol/L (98-107)
[2020-12-24 06:05] LABS: ANION GAP 6 mmol/L (5-15); CALCIUM 9.2 mg/dL (8.5-10.1); CREATININE 0.76 mg/dL (0.7-1.3)
[2020-12-24 06:55] VITALS: BP 109/75
[2020-12-24] MEDS: INSULIN LISPRO 100 UNITS/ML, PEN SQ-INSULIN SCH ×6 (07:57→20:27)
[2020-12-24] MEDS: FUROSEMIDE 20 MG/2 ML IV SCH (07:59)
[2020-12-24] MEDS: ASPIRIN 81 MG TABLET EC PO SCH (08:00)
[2020-12-24] MEDS: SODIUM CHLORIDE FLUSH 10ML SYR IVF SCH ×2 (08:00→20:32)
[2020-12-24] MEDS: FINASTERIDE 5 MG TABLET PO SCH (08:00)
[2020-12-24] MEDS: POTASSIUM CHLORIDE 20 MEQ TAB.ER.PRT PO SCH ×2 (08:00→15:45)
[2020-12-24] MEDS: FUROSEMIDE 40 MG TABLET PO SCH (09:00)
[2020-12-24] MEDS ORDERED: INSULIN GLARGINE 100 UNITS/ML, PEN SQ-INSULIN SCH (09:00)
[2020-12-24] MEDS: INSULIN GLARGINE 100 UNITS/ML, PEN SQ-INSULIN SCH ×2 (09:18→20:33)
[2020-12-24 12:56] VITALS: BP 97/71
[2020-12-24] MEDS ORDERED: NITROGLYCERIN 0.4 MG BOTTLE (25 TABS) SL PRN (14:30)
[2020-12-24 15:07] VITALS: BP 105/71
[2020-12-24 15:45] LABS: TROPONIN I < 0.015 ng/mL (0.000-0.045)
[2020-12-24 19:48] VITALS: BP 100/69
[2020-12-25 02:03] VITALS: BP 101/68
[2020-12-25 05:34] LABS: ANION GAP 7 mmol/L (5-15); CALCIUM 9.3 mg/dL (8.5-10.1); CHLORIDE 102 mmol/L (98-107); CREATININE 0.79 mg/dL (0.7-1.3)
[2020-12-25] MEDS: LEVOTHYROXINE 25 MCG TABLET PO SCH (05:44)
[2020-12-25 07:14] VITALS: BP 96/64
[2020-12-25] MEDS: ASPIRIN 81 MG TABLET EC PO SCH (07:48)
[2020-12-25] MEDS: SODIUM CHLORIDE FLUSH 10ML SYR IVF SCH ×2 (07:48→20:17)
[2020-12-25] MEDS: FUROSEMIDE 40 MG TABLET PO SCH (07:48)
[2020-12-25] MEDS: POTASSIUM CHLORIDE 20 MEQ TAB.ER.PRT PO SCH (07:49)
[2020-12-25] MEDS: FINASTERIDE 5 MG TABLET PO SCH (07:49)
[2020-12-25] MEDS: INSULIN GLARGINE 100 UNITS/ML, PEN SQ-INSULIN SCH (07:50)
[2020-12-25] MEDS: INSULIN LISPRO 100 UNITS/ML, PEN SQ-INSULIN SCH ×6 (07:52→20:16)
[2020-12-25 11:23] VITALS: BP 92/63
[2020-12-25 15:22] LABS: TROPONIN I < 0.015 ng/mL (0.000-0.045)
[2020-12-25 18:44] VITALS: BP 95/71
[2020-12-25] MEDS ORDERED: INSULIN GLARGINE 100 UNITS/ML, PEN SQ-INSULIN SCH (21:00)
[2020-12-26 01:11] VITALS: BP 98/24
[2020-12-26 05:25] VITALS: BP 93/66
[2020-12-26] MEDS: LEVOTHYROXINE 25 MCG TABLET PO SCH (05:29)
[2020-12-26 05:31] LABS: ANION GAP 6 mmol/L (5-15); CALCIUM 8.4 mg/dL (8.5-10.1); CHLORIDE 104 mmol/L (98-107)
[2020-12-26] MEDS: INSULIN LISPRO 100 UNITS/ML, PEN SQ-INSULIN SCH ×4 (07:00→11:46)
[2020-12-26] MEDS: POTASSIUM CHLORIDE 20 MEQ TAB.ER.PRT PO SCH (07:57)
[2020-12-26] MEDS: INSULIN GLARGINE 100 UNITS/ML, PEN SQ-INSULIN SCH (07:57)
[2020-12-26] MEDS: FINASTERIDE 5 MG TABLET PO SCH (07:57)
[2020-12-26] MEDS: ASPIRIN 81 MG TABLET EC PO SCH (07:57)
[2020-12-26] MEDS: FUROSEMIDE 40 MG TABLET PO SCH (07:58)
[2020-12-26] MEDS: SODIUM CHLORIDE FLUSH 10ML SYR IVF SCH (07:58)
[2020-12-26] MEDS ORDERED: POTA20TA6 PO (08:22)
[2020-12-26] MEDS ORDERED: TORS20TA2 PO (08:22)
[2020-12-26] MEDS ORDERED: INSU100I11 SQ-INSULIN (08:22)
[2020-12-26] MEDS ORDERED: INSU100I13 SQ-INSULIN (08:22)
[2020-12-26 08:42] VITALS: BP 101/63
== END 2020-12-26 13:11 | disposition home or self-care (01) | DRG 194 ==
LOC: ED 11:05 → 4WST 13:34 → SUATTDRO 13:42 → 4WST 14:53 → ED 15:07 → DCLOUNGE 12-26 13:04
PROVIDERS: ADMIT Internal Medicine; ATTEND Hospitalist
DX: I11.0 Hypertensive heart disease with heart failure (principal); I47.2 Ventricular tachycardia; R64 Cachexia; E43 Unspecified severe protein-calorie malnutrition; E11.65 Type 2 diabetes mellitus with hyperglycemia; I07.1 Rheumatic tricuspid insufficiency; G90.8 Other disorders of autonomic nervous system; I50.43 Acute on chronic combined systolic (congestive) and diastolic (congestive) heart failure; E87.1 Hypo-osmolality and hyponatremia; I27.20 Pulmonary hypertension, unspecified; E03.9 Hypothyroidism, unspecified; E78.5 Hyperlipidemia, unspecified; E87.6 Hypokalemia; K74.60 Unspecified cirrhosis of liver; Z79.4 Long term (current) use of insulin; Z83.3 Family history of diabetes mellitus; Z91.14 Patient's other noncompliance with medication regimen; Z95.810 Presence of automatic (implantable) cardiac defibrillator; E66.9 Obesity, unspecified; Z68.30 Body mass index [BMI] 30.0-30.9, adult; Z91.018 Allergy to other foods
CPT/HCPCS: 36415; 70450; 71045; 76700; 80048; 80053; 81003; 82436; 82607; 82962; 83036; 83735; 83880; 84100; 84133; 84300; 84443; 84484; 84550; 85025; 87806; 93005; 93306; 93356; 93880; 96374; G0378; J1940; G0475; J1815